=== PATIENT | female | born 1970 | race Two or more races ===

== ENCOUNTER 2023-10-10 14:00 | Outpatient (OUT) | payer SELFPAY | END 2023-10-10 14:01 | disposition home or self-care (01) | LOC: PST 14:01 | PROVIDERS: Visit Provider Surgery | DX: Z01.818 Encounter for other preprocedural examination (principal); Z12.11 Encounter for screening for malignant neoplasm of colon ==

== ENCOUNTER 2023-10-23 06:33 | Day surgery (SDC) | payer BC, SELFPAY ==
--- OUTSIDE RECORDS SUMMARY | 2023-10-23 06:37 | XMS_ITS | CCD ---
Author Organization [facility] Care Team Providers Care Staff Attorney Name Role Phone Jennifer BOWSER, Abril Primary Care Provider CODY SHRESTHA Attending Unavailable ABRIL RODRIGUEZ Referring Unavailable ABRIL RODRIGUEZ Primary Care Unavailable AURELIANO GARVIN Attending Unavailable ABRIL RODRIGUEZ Referring Unavailable ABRIL RODRIGUEZ Primary Care Unavailable Allergies Allergy Classification Reported Allergen(s) Allergy Type Date of Onset Reaction(s) Facility (4 sources) Sulfonamides (Antibiotic); Translations: [SULFA (SULFONAMIDE ANTIBIOTICS)] Propensity to adverse reactions to drug 3 [facility] Medications Current Medications Medication Drug Class(es) Dates Sig (Normalized) Sig (Original) escitalopram 20 mg oral tablet (3 sources) Serotonin Reuptake Inhibitor Start: 07-30-2023 take 1 tablet by mouth in the morning escitalopram (LEXAPRO) 20 mg tablet Indications: Depression, unspecified depression type TAKE 1 TABLET (20 MG TOTAL) BY MOUTH IN THE MORNING 90 tablet 1 07/30/2023 Active loratadine 10 mg oral tablet (3 sources) Start: 02-26-2023 take 1 tablet by mouth in the morning loratadine (CLARITIN) 10 mg tablet Take 1 tablet (10 mg total) by mouth in the morning. 90 tablet 3 02/26/2023 Active meloxicam 7.5 mg oral tablet (4 sources) Nonsteroidal Anti-inflammatory Drug Start: 02-26-2023 End: 09-02-2023 take 1 tablet by mouth in the morning meloxicam (MOBIC) 7.5 mg tablet Indications: Arthritis , Arthralgia, unspecified joint TAKE 1 TABLET (7.5 MG TOTAL) BY MOUTH IN THE MORNING 30 tablet 5 09/02/2023 Active Problems Problem Classification Problem Date Documented Da te Episodic/Chronic Mood disorders (1 source) Depressive disorder; Translations: [Depression, unspecified depression type] 08-29-2023 Chronic Mood disorders (4 sources) Mood disorders; Translations: [Depression, unspecified] Onset: 08-29-2023 01-23-2023 Osteoarthritis (1 source) Arthritis; Translations: [Unspecified osteoarthritis, unspecified site] 09-02-2023 Chronic Other endocrine disorders (1 source) Polycystic ovary syndrome; Translations: [Polycystic ovarian syndrome] 08-29-2023 Chronic Other endocrine disorders (1 source) Polycystic ovarian syndrome; Translations: [Polycystic ovarian syndrome] Onset: 08-29-2023 Chronic Other non-traumatic joint disorders (2 sources) Joint pain; Translations: [Pain in unspecified joint] 08-29-2023 Episodic Other non-traumatic joint disorders (1 source) Pain in unspecified joint; Translations: [Pain in unspecified joint] Onset: 08-29-2023 Episodic Other nutritional; endocrine; and metabolic disorders (1 source) Metabolic syndrome X; Translations: [Metabolic syndrome] 08-29-2023 Chronic Other nutritional; endocrine; and metabolic disorders (1 source) Metabolic syndrome; Translations: [Metabolic syndrome] Onset: 08-29-2023 Chronic Other screening for suspected conditions (not mental disorders or infectious disease) (7 sources) Patient encounter status; Translations: [Encounter for screening for malignant neoplasm of colon] Onset: 03-01-2023 08-29-2023 Episodic Unclassified (1 source) Colon Cancer Screening Onset: 09-24-2023 Results Test Name Value Interpretation Reference Range Facil ity US Venous Reflux/Insuff, David Loweron 02-07-2022 US Venous Reflux/Insuff, David Lower RIGHT LEFT DIAMETER RELUX (msec) DIAMETER REFLUX 1.2 NONE CFV1.86 NONE 1.1 SFV PROX1.6 .78 SFV MID 1.2 .88 SFV DIS .8 .63 SF JUNCTION .68 .89 POP.97 .51 GSV PROX.44 .45 GSV MID.34 .39 GSV DIST.28 .42 GSV KNEE.29 .37 GSV CALF.23 .28 GSV ANKLE.23 .53 SP JUNCTION.35 .41 SSV PROX.42 IMPRESSION: 1. No deep venous thrombosis. 2. No significant venous insufficiency Report reported and signed by Silver Carmona on 02/07/2022 1034 Normal [facility] SCREENING MAMMOGRAM W/DEDRICK, BILATERAL*on 12-15-2021 SCREENING MAMMOGRAM W/DEDRICK, BILATERAL* COMPARISON: Dating back to December 14, 2020 and October 22, 2019 TECHNIQUE: 2D and 3D Tomosynthesis of the right and left breasts was performed. FINDINGS: Breast composition demonstrates almost entirely fat. Stable. No suspicious microcalcifications, asymmetry, architectural distortion or associated features are present. IMPRESSION: BI RADS 1 : NEGATIVE MAMMOGRAM Board Certified Radiologist. Accredited by the ACR and FDA. MAMMOGRAPHY IS VERY IMPORTANT TO YOUR HEALTH. THE CURRENT [employer] GUIDELINES RECOMMENDS ANNUAL MAMMOGRAPHY BEGINNING AT AGE 40. THIS FACILITY USES A REMINDER SYSTEM TO ENSURE ALL PATIENTS RECEIVE REMINDER NOTIFICATIONS AT THE APPROPRIATE TIME BASED ON THE RECOMMENDATIONS OF THIS EXAM. Report reported and signed by Silver Carmona on 12/15/2021 1022 Normal [facility] Comprehensive Metabolic Pane hattie 12-13-2021 Albumin [Mass/Vol] 4.6 g/dL Normal 3.6-5.1 [facility] Comment on above: Performed By: #### T SH reflex FT4, LIPD, CMP #### [facility] [address], [place] [id number] Albumin/Globulin [Mass ratio] 2.3 {ratio} Normal 1.0-2.5 [facility] Comment on above: Performed By: #### T SH reflex FT4, LIPD, CMP #### [facility] [address], [place] [id number] ALP [Catalytic activity/Vol] 65 U/L Normal 35-119 [facility] Comment on above: Performed By: #### T SH reflex FT4, LIPD, CMP #### [facility] [address], [place] [id number] ALT [Catalytic activity/Vol] 13 U/L Normal 6-33 [facility] Comment on above: Result Comment: 07/05 Female reference range changed. Performed By: #### T SH reflex FT4, LIPD, CMP #### [facility] [address], [place] [id number] Anion gap [Moles/Vol] 18 mmol/L Normal 12-20 [facility] Comment on above: Result Comment: Effevgeny ctive 08/10/2019 reference range changed. Performed By: #### T SH reflex FT4, LIPD, CMP #### [facility] [address], [place] [id number] AST [Catalytic activity/Vol] 18 U/L Normal 9-34 [facility] Comment on above: Performed By: #### T SH reflex FT4, LIPD, CMP #### [facility] [address], [place] [id number] Bilirubin [Mass/Vol] 0.44 mg/dL Normal 0.30-1.20 [facility] Comment on above: Performed By: #### T SH reflex FT4, LIPD, CMP #### [facility] [address], [place] [id number] BUN/CREA 14 Ratio Normal 6-22 [facility] Comment on above: Performed By: #### T SH reflex FT4, LIPD, CMP #### [facility] [address], [place] [id number] Calcium [Mass/Vol] 9.9 mg/dL Normal 8.6-10.2 [facility] Comment on above: Performed By: #### T SH reflex FT4, LIPD, CMP #### [facility] [address], [place] [id number] Chloride [Moles/Vol] 102 mmol/L Normal 98-107 [facility] Comment on above: Performed By: #### T SH reflex FT4, LIPD, CMP #### [facility] [address], [place] [id number] CO2 [Moles/Vol] 26 mmol/L Normal 20-31 [facility] Comment on above: Performed By: #### T SH reflex FT4, LIPD, CMP #### [facility] [address], [place] [id number] Creatinine [Mass/Vol] 0.9 mg/dL Normal 0.6-1.4 [facility] Comment on above: Performed By: #### T SH reflex FT4, LIPD, CMP #### [facility] [address], [place] [id number] eGFRAA 83 mL/min/1.73m2 Normal >60 [facility] Specialist Comment on above: Performed By: #### T SH reflex FT4, LIPD, CMP #### [facility] [address], [place] [id number] eGFRNAA 69 mL/min/1.73m2 Normal >60 [facility] Specialist Comment on above: Performed By: #### T SH reflex FT4, LIPD, CMP #### [facility] [address], [place] [id number] Globulin (S) [Mass/Vol] 2.0 g/dL Normal 1.9-3.7 [facility] Specialist Comment on above: Performed By: #### T SH reflex FT4, LIPD, CMP #### [facility] [address], [place] [id number] Glucose [Mass/Vol] 117 mg/dL High 65-99 [facility] Specialist Comment on above: Result Comment: For FASTING Glucose --- ADA reference ranges: Normal 65-99 mg/dl Prediabetes 100-125 Diabetes >/= 126 Performed By: #### T SH reflex FT4, LIPD, CMP #### [facility] [address], [place] [id number] Potassium [Moles/Vol] 4.6 mmol/L Normal 3.5-5.5 [facility] Secretary Comment on above: Result Comment: Spec imen is hemolyzed. Results may be affected. Performed By: #### T SH reflex FT4, LIPD, CMP #### [facility] [address], [place] [id number] Protein [Mass/Vol] 6.6 g/dL Normal 6.1-8.1 [facility] Hospital Secretary Comment on above: Performed By: #### T SH reflex FT4, LIPD, CMP #### [facility] [address], [place] [id number] Sodium [Moles/Vol] 142 mmol/L Normal 135-146 [facility] Hospital Secretary Comment on above: Performed By: #### T SH reflex FT4, LIPD, CMP #### [facility] [address], [place] [id number] Urea nitrogen [Mass/Vol] 13 mg/dL Normal 7-25 [facility] Secretary Comment on above: Performed By: #### T SH reflex FT4, LIPD, CMP #### [facility] [address], [place] [id number] Lipid Panelon 12-13-2021 Cholesterol [Mass/Vol] 188 mg/dL Normal 125-200 [facility] Specialist Comment on above: Result Comment: Low risk < 200mg/dL Borderline risk 201-239 mg/dl High risk > or equal to 240 Performed By: #### T SH reflex FT4, LIPD, CMP #### [facility] [address], [place] [id number] Cholesterol in HDL [Mass/Vol] 68 mg/dL Normal >40 [facility] Secretary Comment on above: Result Comment: High Cardiovascular Risk HDL <40 mg/dL Low Cardiovascular Risk HDL > or equal to 60 mg/dl Performed By: #### T SH reflex FT4, LIPD, CMP #### [facility] [address], [place] [id number] Cholesterol in LDL [Mass/Vol] 103 mg/dL Normal [facility] Specialist Comment on above: Result Comment: LDL ATP III CLASSIFICATION LDL less than 100 mg/dl Optimal LDL 100-129 mg/dl Near or above optimal LDL 130-159 Borderline high LDL 160-189 High LDL greater than 189 mg/dl Very High Performed By: #### T SH reflex FT4, LIPD, CMP #### [facility] [address], [place] [id number] Cholesterol in VLDL [Mass/Vol] 17 mg/dL Normal [facility] Specialist Comment on above: Performed By: #### T SH reflex FT4, LIPD, CMP #### [facility] [address], [place] [id number] Cholesterol.total/C holesterol in HDL [Mass ratio] 3 {ratio} Normal [facility] Specialist Comment on above: Performed By: #### T SH reflex FT4, LIPD, CMP #### [facility] [address], [place] [id number] Triglyceride [Mass/Vol] 83 mg/dL Normal 30-150 [facility] Secretary Comment on above: Result Comment: TRIG ATPIII CLASSIFICATIONS TRIG less than 150 mg/dl Normal TRIG 150-199 mg/dl Borderline High TRIG 200-500 mg/dl High TRIG greather than 500 mg/dl Very High Performed By: #### T SH reflex FT4, LIPD, CMP #### [facility] [address], [place] [id number] TSH w/ Reflex to Free T4on 0 12-13-2021 TSH 3.260 uIU/mL Normal 0.400-4.500 [facility] Secretary Comment on above: Performed By: #### T SH reflex FT4, LIPD, CMP #### [facility] [address], [place] [id number] XR Spine Cervical Complete*o n 12-13-2021 XR Spine Cervical Complete* FINDINGS: Cervical vertebral bodies are preserved in height and are relatively normally aligned. Mild disc space loss with mild anterior and posterior osteophyte formation involving C5/6. Mild mid and distal cervical facet arthropathy, mild to moderate bilateral C5/6 and C6/7 neural foraminal stenosis. No fracture or focal soft tissue swelling is seen. Prevertebral soft tissues are normal. IMPRESSION: Lower cervical arthritis, mild to moderate C5/6 and C6/7 neural foraminal stenosis. Report reported and signed by Silver Carmona on 12/13/2021 1031 Normal [facility] Secretary Vital Signs Date Time Vital Sign Value Performing Clinician Trinity stanley 09-24-2023 15:43-0500 Body height 170.2 cm Aureliano SHARP Work Phone: [facility] 09-24-2023 15:43-0500 Body mass index (BMI) [Ratio] 54.88 kg/m2 Aureliano SHARP Work Phone: [facility] 09-24-2023 15:43-0500 Body weight 158.94 kg Aureliano SHARP Work Phone: [facility] 09-24-2023 15:43-0500 Diastolic blood pressure 84 mm[Hg] Aureliano SHARP Work Phone: [facility] 09-24-2023 15:43-0500 Systolic blood pressure 163 mm[Hg] Aureliano Garvin [employer]ACEE[employer]RASIVE W[employer] J[employer] CUTTER OPERATOR Work Phone: [facility] 08-29-2023 15:45-0500 Body height 170.2 cm Cody Shrestha PA-C Work Phone: [facility] 08-29-2023 15:45-0500 Body mass index (BMI) [Ratio] 57.17 kg/m2 Cody Shrestha PA-C Work Phone: [facility] 08-29-2023 15:45-0500 Body temperature 97.7 [degF] Cody Shrestha PA-C Work Phone: [facility] 08-29-2023 15:45-0500 Body weight 165.56 kg Cody Shrestha PA-C Work Phone: [facility] 08-29-2023 15:45-0500 Diastolic blood pressure 86 mm[Hg] Cody Shrestha PA-C Work Phone: [facility] 08-29-2023 15:45-0500 Heart rate 62 /min Cody Shrestha PA-C Work Phone: [facility] 08-29-2023 15:45-0500 SaO2% (BldA) [Mass fraction] 97 % Cody Shrestha PA-C Work Phone: [facility] 08-29-2023 15:45-0500 Systolic blood pressure 124 mm[Hg] Cody Shrestha PA-C Work Phone: [facility] Encounters Encounter Date Encounter Type Care Provider Facility Start: 09-24-2023 End: 09-24-2023 ambulatory AURELIANO Mesha VIRGIE [facility] Start: 09-24-2023 End: 09-24-2023 Patient encounter procedure Aureliano Mesha Virgie CASTILLON[employer]RAS[employer] CUTTER OPERATOR Work Phone: [facility] Comment on above: Encounter for screen ing colonoscopy (Primary Dx); Special screening for malignant neoplasm of colon Start: 09-02-2023 Refill Cody Shrestha PA-C Work Phone: [facility]/Abril Rodriguez MD Comment on above: Arthritis; Arthralgia, unspecified joint Start: 08-29-2023 End: 08-29-2023 ambulatory [facility] Nima SHRESTHA [facility] Start: 08-29-2023 Encounter for genera l adult medical examination without abnormal findings CODY Herring SHRESTHA [facility] Start: 08-29-2023 End: 08-29-2023 Office outpatient visit 25 minutes Cody Shrestha PA-C Work Phone: [facility]/Abril Rodriguez MD Comment on above: Metabolic syndrome ( Primary Dx); Depression, unspecified depression type; PCOS (polycystic ovarian syndrome); Arthralgia, unspecified joint; Annual physical exam; Special screening for malignant neoplasm of colon Start: 08-29-2023 End: 08-29-2023 Patient encounter procedure Cody Shrestha PA-C Work Phone: [facility] Procedures Date Procedure Procedure Detail Performing Clinician Start: 08-29-2023 Follow-up visit Follow-up CODY SHRESTHA Start: 01-23-2023 Adult depression screening assessment Cody Shrestha PA-C Work Phone: Plan of Treatment Date Care Activity Detail Author Start: 09-24-2024 Adult BMI Screening Adult BMI Screen ing [facility] Start: 09-24-2024 Tobacco Screening Tobacco Screening [facility] Start: 08-29-2024 Adult BMI Screening Adult BMI Screen ing [facility] Start: 08-29-2024 Tobacco Screening Tobacco Screening [facility] Start: 01-24-2024 Depression Screening Depression Scre ening [facility] Start: 11-14-2023 End: 11-14-2023 Patient encounter procedure 11/14/2023 3:00 PM EDT Office Visit [facility]/Abril Rodriguez MD [address] [place] [id number] Cody Shrestha, PAMansoorC [address] [place] [address] [facility]/Abril Rodriguez MD Start: 09-24-2023 End: 09-24-2023 Patient encounter procedure 09/24/2023 3:30 PM EST Office Visit [facility] [address] [place] [address] Aureliano Garvin, BASE BRANDER-ABRASIVE W[employer] JET CUTTER OPERATOR [address] [place] [address] [facility] Start: 04-05-2023 COVID-19 Vaccine ( season) COVID-19 Vaccine ( season) [facility] Start: 04-05-2023 Influenza vaccination Influenza Vacc ine [facility] Start: 2020 Administration of varicella zoster vaccine Zoster (Shingles) Vaccine (1 of 2) [facility] Start: 1991 Screening for malign ant neoplasm of cervix Pap Smear [facility] Start: 1989 DTaP,Tdap and Td Vaccines (1 - Tdap) DTaP,Tdap and Td Vaccines (1 - Tdap) [facility] Start: 1988 Adult BMI Follow Up Plan Adult BMI Follow Up Plan [facility] End: 08-29-2024 CBC W Auto Differential panel - Blood CBC auto differential Lab Routine Metabolic syndrome Annual physical exam 1 Occurrences starting 08/29/2023 until 08/29/2024 [facility] Work Phone: Comment on above: 1 Occurrences starti ng 08/29/2023 until 08/29/2024 End: 09-24-2024 Colonoscopy Colonoscopy GI Routine Encounter for screening colonoscopy 1 Occurrences starting 09/24/2023 until 09/24/2024 [facility] Work Phone: Comment on above: 1 Occurrences starti ng 09/24/2023 until 09/24/2024 End: 08-29-2024 Comprehensive metabolic 2000 panel - Serum or Plasma Comprehensive metabolic panel Lab Routine Metabolic syndrome Depression, unspecified depression type Annual physical exam 1 Occurrences starting 08/29/2023 until 08/29/[address] [facility] Comment on above: 1 Occurrences starti ng 08/29/2023 until 08/29/2024 End: 08-29-2024 Hemoglobin A1c/Hemoglobin.total in Blood Hemoglobin A1c Lab Routine Metabolic syndrome Annual physical exam 1 Occurrences starting 08/29/2023 until 08/29/2024 [facility] Comment on above: 1 Occurrences starti ng 08/29/2023 until 08/29/2024 End: 08-29-2024 Lipid 1996 panel - Serum or Plasma Lipid profile Lab Routine Metabolic syndrome Annual physical exam 1 Occurrences starting 08/29/2023 until 08/29/2024 [facility] Comment on above: 1 Occurrences starti ng 08/29/2023 until 08/29/2024 End: 08-29-2024 Thyrotropin [Units/volume] in Serum or Plasma TSH Lab Routine Metabolic syndrome Annual physical exam 1 Occurrences starting 08/29/2023 until 08/29/[address] [facility] Comment on above: 1 Occurrences starti ng 08/29/2023 until 08/29/2024 End: 08-29-2024 Thyroxine (T4) free [Mass/volume] in Serum or Plasma T4, free Lab Routine Metabolic syndrome Annual physical exam 1 Occurrences starting 08/29/2023 until 08/29/[address] [facility] Comment on above: 1 Occurrences starti ng 08/29/2023 until 08/29/2024 Immunizations Immunization Date Immunization Notes Care Provider Fa camille 05-23-2022 influenza virus vaccine, unspecified formulation Cody Shrestha PA-C Work Phone: [facility] Payers Date Payer Category Payer Unknown CAR DIAS (PPO) [id number] 2023-Present [phone] [address] [place] [address] [id number] 2023 Unknown [id number] 1970 Unknown [id number] 1970 Unknown [id number] Social History Date Type Detail Facility Start: 01-23-2023 Tobacco smoking stat [facility] Never smoked tobacco [facility] Start: 01-23-2023 Tobacco use and exposure Smokeless tobacco non-user [facility] Start: 08-29-2023 End: 09-24-2023 Alcohol intake Current drinker of alcohol (finding) [facility] Start: 01-23-2023 End: 08-29-2023 History of Social function [facility] Start: 01-23-2023 End: 08-29-2023 Tobacco use panel [facility] How hard is it for y ou to pay for the very basics like food, housing, medical care, and heating Not very hard [facility] Adolescent depressio n screening assessment [address] [facility] Start: 01-23-2023 Alcohol Comment social [facility] Start: 1970 Sex Assigned At Not on file P [facility] History of Present illness Narrative 09-24-2023 Aureliano Garvin, TRACEE[employer]RASIVE W[employer] J[employer] CUTTER OPERATOR - 09/24/2023 3:30 PM EST Note Date & Type Note Facility 09-24-2023 History of Present illness Narrative Images from the original note were not included. Chief Complaint: Colon cancer screening History of Present Illness Brown Aguilar is a 53 y.o. female who presents to the office for colon cancer screening. This is her first colonoscopy. She denies any changes in her bowels including diarrhea, constipation, abdominal pain, melena, hematochezia, unexplained weight loss. There is no family history of colon cancer. Review of Systems Constitutional: Negative for fever and unexpected weight change. HENT: Negative for trouble swallowing. Respiratory: Negative for shortness of breath. Cardiovascular: Negative for chest pain. Gastrointestinal: Negative for nausea, vomiting, abdominal pain, diarrhea, constipation and blood in stool. Genitourinary: Negative for dysuria and difficulty urinating. Musculoskeletal: Negative for gait problem. Skin: Negative for rash and wound. Neurological: Negative for dizziness, weakness and light-headedness. Hematological: Does not bruise/bleed easily. Psychiatric/Behavioral: Negative for confusion. Past Medical History: Diagnosis Date Allergic rhinitis Arthritis Depression GERD (gastroesophageal reflux disease) Obesity PCOS (polycystic ovarian syndrome) Varicella Visual impairment Past Surgical History: Procedure Laterality Date APPENDECTOMY 1993 BREAST BIOPSY 2004 Benign BREAST LUMPECTOMY Right 2004 Benign, Dr. Smith CHOLECYSTECTOMY 1995 COLONOSCOPY EGD [address] Hue Cox. Right ovary remains TOTAL HIP ARTHROPLASTY Right 2017 TUBAL LIGATION 1996 Allergies Allergen Reactions Sulfa (Sulfonamide Antibiotics) Hives HIVES, no ROSEY Current Outpatient Medications: escitalopram (LEXAPRO) 20 mg tablet, TAKE 1 TABLET (20 MG TOTAL) BY MOUTH IN THE MORNING, Disp: 90 tablet, Rfl: 1 loratadine (CLARITIN) 10 mg tablet, Take 1 tablet (10 mg total) by mouth in the morning., Disp: 90 tablet, Rfl: 3 meloxicam (MOBIC) 7.5 mg tablet, TAKE 1 TABLET (7.5 MG TOTAL) BY MOUTH IN THE MORNING, Disp: 30 tablet, Rfl: 5 Social History Socioeconomic History Marital status: Spouse name: Not on file Number of children: Not on file Years of education: Not on file Highest education level: Not on file Occupational History Not on file Tobacco Use Smoking status: Never Smokeless tobacco: Never Vaping Use Vaping Use: Never used Substance and Sexual Activity Alcohol use: Yes Comment: social Drug use: Never Sexual activity: Defer Other Topics Concern Not on file Social History Narrative Not on file Social Determinants of Health Financial Resource Strain: Low Risk (01/20/2023) Overall Financial Resource Strain (CARDIA) Difficulty of Paying Living Expenses: Not very hard Food Insecurity: No Food Insecurity (01/23/2023) Hunger Screening Food Insecurity - Worry: Never True Food Insecurity - Inability: Never True Transportation Needs: No Transportation Needs (01/20/2023) PRAPARE - Transportation Lack of Transportation (Medical): No Lack of Transportation (Non-Medical): No Physical Activity: Not on file Stress: Not on file Social Connections: Not on file Interpersonal Safety: Not on file Housing Instability: Low Risk (01/20/2023) Housing Instability Housing Instability: No Family History Problem Relation Age of Onset Diabetes Mother Hypertension Mother Arthritis Mother Hyperlipidemia Mother Dementia Father Diabetes Father Hyperlipidemia Father Hypertension Father Hypertension Son Learning disabilities Son Mental illness Son Learning disabilities Son Learning disabilities Son Objective Physical Exam Constitutional: General: She is not in acute distress. Appearance: Normal appearance. She is obese. She is not ill-appearing. HENT: Head: Normocephalic and atraumatic. Mouth/Throat: Mouth: Mucous membranes are moist. Eyes: Pupils: Pupils are equal, round, and reactive to light. Cardiovascular: Rate and Rhythm: Normal rate. Pulmonary: Effort: Pulmonary effort is normal. No respiratory distress. Abdominal: General: There is no distension. Palpations: Abdomen is soft. Musculoskeletal: General: Normal range of motion. Skin: General: Skin is warm and dry. Neurological: Mental Status: She is alert and oriented to person, place, and time. Mental status is at baseline. Vital Signs: Blood pressure 163/84, height 170.2 cm (5' 7 ), weight (!) 158.9 kg (350 lb 6.4 oz). Respiratory Source: No data recorded Admission Weight: Weight: (!) 158.9 kg (350 lb 6.4 oz) Labs Lab Results Component Value Date WBC 5.3 01/29/2023 HGB 13.0 01/29/2023 HCT 39.2 01/29/2023 MCV 87 01/29/2023 PLT 210 01/29/2023 Lab Results Component Value Date GLU 127 (H) 01/29/2023 CALCIUM 8.9 01/29/2023 K 3.9 01/29/2023 CO2 28 01/29/2023 CL 107 01/29/2023 BUN 15 01/29/2023 CREATININE 0.86 01/29/2023 No results found for: AMYLASE No results found for: LIPASE Lab Results Component Value Date ALT 13 01/29/2023 AST 14 01/29/2023 ALKPHOS 48 01/29/2023 No results found for: INR , PROTIME Assessment Brown Aguilar is a 53 y.o.female who presents to the office for screening colonoscopy. Plan Colonoscopy with possible biopsy and/or polypectomy. Risks, benefits, and alternatives discussed with patient. Educated on bowel evacuation preparation. Patient verbalizes understanding and wishes to proceed. She already has sutab at home. Evaluation included: Preparing to see the patient (e.g., review of tests) Obtaining and/or reviewing separately obtained history Performing a medically appropriate examination and/or evaluation Counseling and educating the patient/family/caregiver Referring and communicating with other health respiratory care instructor Encounter for screening colonoscopy [Z12.11] ARON MEZA [facility] General Surgery [place] This note was created with the assistance of a speech recognition program. While intending to generate a timely document that accurately reflects the content of the visit, no guarantee can be provided that every grammatical or spelling mistake has been or will be identified or corrected. Thank you for your understanding. ARON Meza 09/24/23 1555 documented in this encounter [facility] History of Present illness Narrative 08-29-2023 Cody Shrestha PA-C - 08/29/2023 3:30 PM EST Note Date & Type Note Facility 08-29-2023 History of Present illness Narrative Subjective Patient ID: Brown Aguilar is a 53 y.o. female. Chief Complaint Chief Complaint Patient presents with Follow-up 6 month f/u, med check HPI HPI 3rd visit with Brown, 6 month recheck to metabolic syndrome, arthritis, mild depression. 01/29/23 A1C elevated at 6.0. Wt down 10 lbs from January. But of recent down 20 lbs overall. Feels good, motivated. Exercise bike 20 minutes/day. Mobic 7.5mg qd. 20x better within 3-4 days. I can move, I can walk, doing ellicpitcal. Takes 1 per day. Occ with cold/rain would like to take 2/day. Instead of cologuard requested a c-scope. Mammogram completed 03/21/2023. Doing well on lexapro 20mg qd. Past Medical History Past Medical History: Diagnosis Date Depression PCOS (polycystic ovarian syndrome) Past Surgical History Past Surgical History: Procedure Laterality Date APPENDECTOMY 1993 BREAST LUMPECTOMY Right 2003 Benign, Dr. Smith COLONOSCOPY GALLBLADDER SURGERY [address] Hue Cox. Right ovary remains TOTAL HIP ARTHROPLASTY Right 2016 TUBAL LIGATION 1996 Family History Family History Problem Relation Age of Onset Diabetes Mother Hypertension Mother Dementia Father Diabetes Father Social History Social History Socioeconomic History Marital status: Spouse name: Not on file Number of children: Not on file Years of education: Not on file Highest education level: Not on file Occupational History Not on file Tobacco Use Smoking status: Never Smokeless tobacco: Never Vaping Use Vaping Use: Never used Substance and Sexual Activity Alcohol use: Yes Comment: social Drug use: Never Sexual activity: Yes Partners: Male Other Topics Concern Not on file Social History Narrative Not on file Social Determinants of Health Financial Resource Strain: Low Risk (01/20/2023) Overall Financial Resource Strain (CARDIA) Difficulty of Paying Living Expenses: Not very hard Food Insecurity: No Food Insecurity (01/23/2023) Hunger Screening Food Insecurity - Worry: Never True Food Insecurity - Inability: Never True Transportation Needs: No Transportation Needs (01/20/2023) PRAPARE - Transportation Lack of Transportation (Medical): No Lack of Transportation (Non-Medical): No Physical Activity: Not on file Stress: Not on file Social Connections: Not on file Interpersonal Safety: Not on file Housing Instability: Low Risk (01/20/2023) Housing Instability Housing Instability: No Allergies Allergies Allergen Reactions Sulfa (Sulfonamide Antibiotics) Hives HIVES, no ROSEY Current Medications Current Outpatient Medications Medication Sig Dispense Refill escitalopram (LEXAPRO) 20 mg tablet TAKE 1 TABLET (20 MG TOTAL) BY MOUTH IN THE MORNING 90 tablet 1 loratadine (CLARITIN) 10 mg tablet Take 1 tablet (10 mg total) by mouth in the morning. 90 tablet 3 meloxicam (MOBIC) 7.5 mg tablet Take 1 tablet (7.5 mg total) by mouth in the morning. 30 tablet 5 No current facility-administered medications for this visit. Review of Systems Review of Systems Constitutional: Negative for appetite change, fatigue and fever. HENT: Negative for ear pain and sore throat. Respiratory: Negative for cough and shortness of breath. Cardiovascular: Negative for chest pain and leg swelling. Gastrointestinal: Negative for abdominal pain, diarrhea, nausea and vomiting. Genitourinary: Negative for dysuria and flank pain. Musculoskeletal: Positive for arthralgias. Negative for back pain, gait problem, myalgias and neck pain. Skin: Negative for rash and wound. Neurological: Negative for dizziness, weakness, numbness and headaches. Psychiatric/Behavioral: Negative for confusion and sleep disturbance. The patient is not nervous/anxious. Objective Vitals BP 124/86 Pulse 62 Temp 36.5 C (97.7 F) Ht 170.2 cm (5' 7 ) Wt (!) 165.6 kg (365 lb) SpO2 97% BMI 57.17 kg/m Physical Exam Physical Exam Constitutional: General: She is not in acute distress. Appearance: She is well-developed. She is obese. She is not ill-appearing. HENT: Head: Normocephalic and atraumatic. Right Ear: Tympanic membrane and ear canal normal. Left Ear: Tympanic membrane and ear canal normal. Nose: Nose normal. Right Sinus: No maxillary sinus tenderness or frontal sinus tenderness. Left Sinus: No maxillary sinus tenderness or frontal sinus tenderness. Mouth/Throat: Mouth: Mucous membranes are moist. Pharynx: Uvula midline. Eyes: Conjunctiva/sclera: Conjunctivae normal. Pupils: Pupils are equal, round, and reactive to light. Neck: Thyroid: No thyroid mass or thyromegaly. Vascular: No carotid bruit or JVD. Trachea: Trachea normal. Meningeal: Kernig's sign absent. Cardiovascular: Rate and Rhythm: Normal rate and regular rhythm. Pulses: Normal pulses. Radial pulses are 2+ on the right side and 2+ on the left side. Heart sounds: Normal heart sounds, S1 normal and S2 normal. No murmur heard. Pulmonary: Effort: Pulmonary effort is normal. No respiratory distress. Breath sounds: Normal breath sounds. No decreased breath sounds, wheezing, rhonchi or rales. Abdominal: General: Bowel sounds are normal. Palpations: Abdomen is soft. There is no mass. Tenderness: There is no abdominal tenderness. Negative signs include Garcia's sign and McBurney's sign. Hernia: No hernia is present. Musculoskeletal: General: Normal range of motion. Cervical back: Full passive range of motion without pain and normal range of motion. No rigidity or tenderness. Thoracic back: Normal. No tenderness. Lumbar back: Normal. No tenderness. Right lower leg: No edema. Left lower leg: No edema. Right ankle: No swelling. Left ankle: No swelling. Lymphadenopathy: Cervical: Right cervical: No superficial cervical adenopathy. Left cervical: No superficial cervical adenopathy. Upper Body: Right upper body: No supraclavicular adenopathy. Left upper body: No supraclavicular adenopathy. Skin: General: Skin is warm and dry. Capillary Refill: Capillary refill takes less than 2 seconds. Findings: No ecchymosis or rash. Nails: There is no clubbing. Neurological: General: No focal deficit present. Mental Status: She is alert and oriented to person, place, and time. Cranial Nerves: No cranial nerve deficit. Sensory: No sensory deficit. Motor: No tremor. Coordination: Coordination normal. Gait: Gait normal. Psychiatric: Mood and Affect: Mood normal. Speech: Speech normal. Behavior: Behavior normal. Behavior is cooperative. Judgment: Judgment normal. Wt Readings from Last 3 Encounters: 08/29/23 (!) 165.6 kg (365 lb) 02/26/23 (!) 170.1 kg (375 lb) 01/23/23 (!) 172.8 kg (381 lb) Recent Pertinent Labs and Radiology Assessment/Plan 1. Metabolic syndrome - POCT Hemoglobin A1c - CBC auto differential; Future - Comprehensive metabolic panel; Future - Lipid profile; Future - Hemoglobin A1c; Future - TSH; Future - T4, free; Future 2. Depression, unspecified depression type - Comprehensive metabolic panel; Future 3. PCOS (polycystic ovarian syndrome) 4. Arthralgia, unspecified joint 5. Annual physical exam - CBC auto differential; Future - Comprehensive metabolic panel; Future - Lipid profile; Future - Hemoglobin A1c; Future - TSH; Future - T4, free; Future 6. Special screening for malignant neoplasm of colon - Ambulatory referral to General Surgery; Future There are no discontinued medications. Patient Instructions Chronic conditions well controlled Great job on weight loss Fasting labs Referral to Dr. Clemente, general surgeon for screening c-scope Recheck in 3 months Cody Shrestha PA-C 08/29/23 1626 documented in this encounter [facility] [employer] [facility] Instructions 08-29-2023 Patient Instructions Note Date & Type Note Facility 08-29-2023 Instructions Cody Shrestha PA-C - 08/29/2023 3:30 PM EST Chronic conditions well controlled Great job on weight loss Fasting labs Referral to Dr. Clemente, general surgeon for screening c-scope Recheck in 3 months documented in this encounter [facility] Evaluation note Note Date & Type Note Facility Evaluation note Diagnosis Metabolic syndrome- Primary Dysmetabolic Syndrome X Depression, unspecified depression type PCOS (polycystic ovarian syndrome) Polycystic ovaries Arthralgia, unspecified joint Annual physical exam Routine general medical examination at a health care facility Special screening for malignant neoplasm of colon Special screening for malignant neoplasms, colon documented in this encounter [facility] Evaluation note Note Date & Type Note Facility Evaluation note Diagnosis Arthritis Unspecified arthropathy, site unspecified Arthralgia, unspecified joint documented in this encounter [facility] Evaluation note Note Date & Type Note Facility Evaluation note Diagnosis Encounter for screening colonoscopy- Primary Special screening for malignant neoplasm of colon Special screening for malignant neoplasms, colon documented in this encounter [facility] Instructions Note Date & Type Note Facility Instructions Not on filedocumented in this en counter [facility] Instructions Note Date & Type Note Facility Instructions Not on filedocumented in this en counter [facility] Reason for referral (narrative) Consultation (Routine) - Pending Review Note Date & Type Note Facility Reason for referral (narrati ve) Specialty Diagnoses / Procedures Referred By Lakeisha t Referred To Contact General Surgery Diagnoses Special screening for malignant neoplasm of colon Cody Shrestha PA-C [address] [place] [address] Og Clemente MD [address] [place] [address] Referral ID Status Reason Start Date Expiration Date Visits Requested Visits Authorized [id number] Pending Review Specialty Services Required 08/29/2023 08/28/2024 1 1 [facility] Summary Purpose Family History No Family History Records FoundNo Family History Records Found Advance Directives No Advanced Directives Records FoundNo Advanced Directives Records Found Additional Source Comments INFORMATION SOURCE (unrecogn ized section and content) DATE CREATED AUTHOR 02/07/2022 [facility] dical Specialist DATE CREATED AUTHOR AUTHOR'S ORGANIZ ATION 10/02/2023 [facility] Reason for Visit (unrecogniz ed section and content) Reason Comments Follow-up 6 month f/u, med ronaldo ck Reason Comments Med Refill Reason Comments Colon Cancer Screening First colon Specialty Diagnoses / Procedures Referred By Lakeisha del castillo Referred To Contact General Surgery Diagnoses Special screening for malignant neoplasm of colon Cody Shrestha PA-C [address] [place] [id number] Og Smith DO [address] [place] [address] Referral ID Status Reason Start Date Expiration Date V isits Requested Visits Authorized [id number] Closed Specialty Services Required 08/29/2023 08/28/2024 1 1 Care Teams (unrecognized sec tion and content) Staff Attorney Relationship Specialty Start Date End Date Abril Rodriguez MD [address] [address] PCP - General Internal Medicine 01/23/23 Staff Attorney Relationship Specialty Start Date End Date Abril Rodriguez MD [address] [address] PCP - General Internal Medicine 01/23/23 Staff Attorney Relationship Specialty Start Date End Date Abril Rodriguez MD [address] [address] PCP - General Internal Medicine 01/23/23 FOR RECORDS PERTAINING TO PATIENTS WHO ARE OR HAVE BEEN ENROLLED IN A CHEMICAL DEPENDENCY/SUBSTANCEABUSE PROGRAM, SOME INFORMATION MAY BE OMITTED. This clinical summary was aggregated from multiple sources. Caution should be exercised in using it in the provision of clinical care. This summary normalizes information from multiple sources, and as a consequence, information in this document may materially change the coding, format and clinical context of patient data. In addition, data may be omitted in some cases. CLINICAL DECISIONS SHOULD BE BASED ON THE PRIMARY CLINICAL RECORDS. [employer] provides no warranty or guarantee of the accuracy or completeness of information in this document.
[2023-10-23 06:54] VITALS: BP 169/86; PULSE 90; RESP 18; TEMP 35.5; O2SAT 96; BMI 53.5
[2023-10-23] MEDS: LACTATED RINGER'S SOLUTION 1,000 ML 50 ML IV (07:05)
--- NOTE | 2023-10-23 07:45 | PM.GSPRC ---
Date of procedure: 10/23/23 Indications for Procedure: screening for cancer Pre-op diagnosis: screening for cancer Post-op diagnosis: other (colon polyp ?2 rectum 5-7 mm each) Procedure: colonoscopy with hot snare polyps rectum ?2 Minimal diverticulosis sigmoid colon Findings: rectal polyps; diverticulosis minimal sigmoid colon Anesthesia: MAC Surgeon: Og Smith Procedure Summary: PROCEDURE: The patient was taken to the Endoscopy Suite, placed in the left lateral recumbent position, given IV sedation as above. A rectal digital exam was performed. The sphincter tone was found to be normal. No rectal masses were appreciated. The Olympus video colonoscope was advanced under direct visualization to the rectum, sigmoid colon, descending colon, transverse colon and ascending colon to the ileocecal valve. The underside of the valve was seen.appendiceal lumen was visualized. The scope was slowly withdrawn with air being desufflated as it was withdrawn. No gross tumors seen. She had minimal diverticulosis about two of them in the sigmoid colon found. In the rectum two small polyps were encountered and snared with hot snare and retrieved. Scope was retroflexed on itself. The patient tolerated the procedure well and went to the Recovery Area in satisfactory condition. I recommend the patient use a bulk laxative on a regular basis and follow up as needed.she should follow high-fiber diet. She is encouraged to lose weight. I would recommend follow-up in five years if polyps are tubular adenomas. Estimated blood loss (mL): 0 Specimens: rectal polyps Complications: No Condition: stable Disposition: PACU
[2023-10-23 07:47] VITALS: BP 145/85; PULSE 65; RESP 18; TEMP 36.6; O2SAT 94
[2023-10-23 08:02] VITALS: BP 123/78; PULSE 63; RESP 18; O2SAT 99
[2023-10-23 08:16] VITALS: BP 132/72; PULSE 70; RESP 16
== END 2023-10-23 08:17 | disposition home or self-care (01) ==
PROVIDERS: Visit Provider Surgery
PROC: (CPT 812; principal; 2023-10-23 07:30)
DX: Z12.11 Encounter for screening for malignant neoplasm of colon (principal); K57.30 Diverticulosis of large intestine without perforation or abscess without bleeding; D3A.026 Benign carcinoid tumor of the rectum; M19.90 Unspecified osteoarthritis, unspecified site; F32.A Depression, unspecified; K21.9 Gastro-esophageal reflux disease without esophagitis; E28.2 Polycystic ovarian syndrome; D64.9 Anemia, unspecified; Z90.49 Acquired absence of other specified parts of digestive tract; Z90.710 Acquired absence of both cervix and uterus; Z96.641 Presence of right artificial hip joint; Z98.51 Tubal ligation status; Z68.43 Body mass index [BMI] 50.0-59.9, adult; E66.01 Morbid (severe) obesity due to excess calories
CPT/HCPCS: 45385; 88305; 88341; 88342; 99999; J2704

== ENCOUNTER 2023-11-05 11:56 | Outpatient (OUT) | payer BC, SELFPAY ==
--- OUTSIDE RECORDS SUMMARY | 2023-11-05 12:19 | XMS_ITS | CCD ---
Author Organization [facility] Care Team Providers Care Director Engineering Name Role Phone Jennifer BOWSER, Abril Primary Care Provider CODY SHRESTHA Attending Unavailable ABRIL RODRIGUEZ Referring Unavailable ABRIL RODRIGUEZ Primary Care Unavailable AURELIANO GARVIN Attending Unavailable ABRIL RODRIGUEZ Referring Unavailable ABRIL RODRIGUEZ Primary Care Unavailable Allergies Allergy Classification Reported Allergen(s) Allergy Type Date of Onset Reaction(s) Facility (9 sources) Sulfonamides (Antibiotic); Translations: [SULFA (SULFONAMIDE ANTIBIOTICS)] Propensity to adverse reactions to drug 3 [facility] Medications Current Medications Medication Drug Class(es) Dates Sig (Normalized) Sig (Original) escitalopram 20 mg oral tablet (8 sources) Serotonin Reuptake Inhibitor Start: 07-30-2023 take 1 tablet by mouth in the morning escitalopram (LEXAPRO) 20 mg tablet Indications: Depression, unspecified depression type TAKE 1 TABLET (20 MG TOTAL) BY MOUTH IN THE MORNING 90 tablet 1 07/30/2023 Active loratadine 10 mg oral tablet (8 sources) Start: 02-26-2023 take 1 tablet by mouth in the morning loratadine (CLARITIN) 10 mg tablet Take 1 tablet (10 mg total) by mouth in the morning. 90 tablet 3 02/26/2023 Active meloxicam 7.5 mg oral tablet (9 sources) Nonsteroidal Anti-inflammatory Drug Start: 02-26-2023 End: 09-02-2023 take 1 tablet by mouth in the morning meloxicam (MOBIC) 7.5 mg tablet Indications: Arthritis , Arthralgia, unspecified joint TAKE 1 TABLET (7.5 MG TOTAL) BY MOUTH IN THE MORNING 30 tablet 5 09/02/2023 Active Problems Active Problems Problem Classification Problem Date Documented Da te Episodic/Chronic Mood disorders (1 source) Depressive disorder; Translations: [Depression, unspecified depression type] 08-29-2023 Chronic Osteoarthritis (1 source) Arthritis; Translations: [Unspecified osteoarthritis, unspecified site] 09-02-2023 Chronic Other and unspecified benign neoplasm (1 source) Carcinoid tumor of rectum; 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] 11-04-2023 Episodic Other endocrine disorders (1 source) Polycystic ovary [...] syndrome; Translations: [Metabolic syndrome] Onset: 08-29-2023 Chronic Unclassified (1 source) Colon Cancer Screening Onset: 09-24-2023 Past or Other Problems Problem Classification Problem Date Documented Da te Episodic/Chronic Mood disorders (9 sources) Mood disorders; Translations: [Depression, unspecified] Onset: 08-29-2023 01-23-2023 Other screening for suspected conditions (not mental disorders or infectious disease) (13 sources) Patient encounter status; Translations: [Encounter for screening for malignant neoplasm of colon] Onset: 03-01-2023 08-29-2023 Episodic Results Test Name Value Interpretation Reference Range Facility Colonoscopyon 10-23-2023 [facility] Surgical PathologyOrdered By : Nadia Loving on 10-23-2023 [facility] US Venous Reflux/Insuff, David Loweron 02-07-2022 US [...] by Silver Carmona on 02/07/2022 1034 Normal [facility] SCREENING MAMMOGRAM W/DEDRICK, BILATERAL*on 12-15-2021 SCREENING MAMMOGRAM [...] VERY IMPORTANT TO YOUR HEALTH. THE CURRENT [employer] GUIDELINES RECOMMENDS ANNUAL MAMMOGRAPHY BEGINNING AT AGE 40. THIS FACILITY USES A REMINDER SYSTEM TO ENSURE ALL PATIENTS RECEIVE REMINDER NOTIFICATIONS AT THE APPROPRIATE TIME BASED ON THE RECOMMENDATIONS OF THIS EXAM. Report reported and signed by Sivler Carmona on 12/15/2021 1022 Normal [facility] Comprehensive Metabolic Pane htatie 12-13-2021 Albumin [Mass/Vol] 4.6 g/dL Normal 3.6-5.[address] [facility] Pasteurizer Helper Comment on above: Performed By: #### T SH reflex FT4, LIPD, CMP #### [facility] [address] [place], [place] [id number] Albumin/Globulin [Mass ratio] 2.3 {ratio} Normal 1.0-2.5 [facility] Specialist Comment on above: Performed By: #### T SH reflex FT4, LIPD, CMP #### [facility] [address] [place], [place] [id number] ALP [Catalytic activity/Vol] 65 U/L Normal 35-119 [facility] Specialist Comment on above: Performed By: #### T SH reflex FT4, LIPD, CMP #### [facility] [address] [place], [place] [id number] ALT [Catalytic activity/Vol] 13 U/L Normal 6-33 [facility] Comment on above: Result Comment: 07/05 Female reference range changed. Performed By: #### T SH reflex FT4, LIPD, CMP #### [facility] [address] [place], [place] [id number] Anion gap [Moles/Vol] 18 mmol/L Normal 12-20 [facility] Comment on above: Result Comment: Effe ctive 08/10/2019 reference range changed. Performed By: #### T SH reflex FT4, LIPD, CMP #### [facility] [address] [place], [place] [id number] AST [Catalytic activity/Vol] 18 U/L Normal 9-34 [facility] Comment on above: Performed By: #### T SH reflex FT4, LIPD, CMP #### [facility] [address] [place], [place] [id number] Bilirubin [Mass/Vol] 0.44 mg/dL Normal 0.30-1.20 [facility] Comment on above: Performed By: #### T SH reflex FT4, LIPD, CMP #### [facility] [address] [place], [place] [id number] BUN/CREA 14 Ratio Normal 6-22 [facility] Comment on above: Performed By: #### T SH reflex FT4, LIPD, CMP #### [facility] [address] [place], [place] [id number] Calcium [Mass/Vol] 9.9 mg/dL Normal 8.6-10.2 [facility] Comment on above: Performed By: #### T SH reflex FT4, LIPD, CMP #### [facility] [address] [place], [place] [id number] Chloride [Moles/Vol] 102 mmol/L Normal 98-107 [facility] Comment on above: Performed By: #### T SH reflex FT4, LIPD, CMP #### [facility] [address] [place], [place] [id number] CO2 [Moles/Vol] 26 mmol/L Normal 20-31 [place] P[employer]izer Helper Comment on above: Performed By: #### T SH reflex FT4, LIPD, CMP #### [facility] [address] [place], [place] [id number] Creatinine [Mass/Vol] 0.9 mg/dL Normal 0.6-1.4 [facility] Specialist Comment on above: Performed By: #### T SH reflex FT4, LIPD, CMP #### [facility] [address] [place], [place] [id number] eGFRAA 83 mL/min/1.73m2 Normal >60 [facility] Specialist Comment on above: Performed By: #### T SH reflex FT4, LIPD, CMP #### [facility] [address] [place], [place] [id number] eGFRNAA 69 mL/min/1.73m2 Normal >60 [facility] Specialist Comment on above: Performed By: #### T SH reflex FT4, LIPD, CMP #### [facility] [address] [place], [place] [id number] Globulin (S) [Mass/Vol] 2.0 g/dL Normal 1.9-3.7 [facility] Specialist Comment on above: Performed By: #### T SH reflex FT4, LIPD, CMP #### [facility] [address] [place], [place] [id number] Glucose [Mass/Vol] 117 mg/dL High 65-99 [facility] Pasteurizer Helper Comment on above: Result Comment: For FASTING Glucose --- ADA reference ranges: Normal 65-99 mg/dl Prediabetes 100-125 Diabetes >/= 126 Performed By: #### T SH reflex FT4, LIPD, CMP #### [facility] [address] [place], [place] [id number] Potassium [Moles/Vol] 4.6 mmol/L Normal 3.5-5.5 [facility] Pasteurizer Helper Comment on above: Result Comment: Spec imen is hemolyzed. Results may be affected. Performed By: #### T SH reflex FT4, LIPD, CMP #### [facility] [address] [place], [place] [id number] Protein [Mass/Vol] 6.6 g/dL Normal 6.1-8.1 [facility] [place] [employer] Helper Comment on above: Performed By: #### T SH reflex FT4, LIPD, CMP #### [facility] [address] [place], [place] [id number] Sodium [Moles/Vol] 142 mmol/L Normal 135-146 [facility] [place] [employer] Helper Comment on above: Performed By: #### T SH reflex FT4, LIPD, CMP #### [facility] [address] [place], [place] [id number] Urea nitrogen [Mass/Vol] 13 mg/dL Normal 7-25 [facility] Pasteurizer Helper Comment on above: Performed By: #### T SH reflex FT4, LIPD, CMP #### [facility] [address] [place], [place] [id number] Lipid Panelon 12-13-2021 Cholesterol [Mass/Vol] 188 mg/dL Normal 125-200 [facility] Specialist Comment on above: Result Comment: Low risk < 200mg/dL Borderline risk 201-239 mg/dl High risk > or equal to 240 Performed By: #### T SH reflex FT4, LIPD, CMP #### [facility] [address] [place], [place] [id number] Cholesterol in HDL [Mass/Vol] 68 mg/dL Normal >40 [facility] P[employer]urizer Helper Comment on above: Result Comment: High Cardiovascular Risk HDL <40 mg/dL Low Cardiovascular Risk HDL > or equal to 60 mg/dl Performed By: #### T SH reflex FT4, LIPD, CMP #### [facility] [address] [place], [place] [id number] Cholesterol in LDL [Mass/Vol] 103 mg/dL Normal [facility] P[employer]urizer Helper Comment on above: Result Comment: LDL ATP III CLASSIFICATION LDL less than 100 mg/dl Optimal LDL 100-129 mg/dl Near or above optimal LDL 130-159 Borderline high LDL 160-189 High LDL greater than 189 mg/dl Very High Performed By: #### T SH reflex FT4, LIPD, CMP #### [facility] [address] [place], [place] [id number] Cholesterol in VLDL [Mass/Vol] 17 mg/dL Normal [facility] Pasteurizer Helper Comment on above: Performed By: #### T SH reflex FT4, LIPD, CMP #### [facility] [address] [place], [place] [id number] Cholesterol.total/Cho lesterol in HDL [Mass ratio] 3 {ratio} Normal [facility] Pasteurizer Helper Comment on above: Performed By: #### T SH reflex FT4, LIPD, CMP #### [facility] [address] [place], [place] [id number] Triglyceride [Mass/Vol] 83 mg/dL Normal 30-150 [facility] Pasteurizer Helper Comment on above: Result Comment: TRIG ATPIII CLASSIFICATIONS TRIG less than 150 mg/dl Normal TRIG 150-199 mg/dl Borderline High TRIG 200-500 mg/dl High TRIG greather than 500 mg/dl Very High Performed By: #### T SH reflex FT4, LIPD, CMP #### [facility] [address] [place], [place] [id number] TSH w/ Reflex to Free T4on 0 12-13-2021 TSH 3.260 uIU/mL Normal 0.400-4.500 [facility] Pasteurizer Helper Comment on above: Performed By: #### T SH reflex FT4, LIPD, CMP #### [facility] [address] [place], [place] [id number] XR Spine Cervical Complete*o n 12-13-2021 XR [...] by Silver Carmona on 12/13/2021 1031 Normal [facility] Specialist Vital Signs Date Time Vital Sign Value Performing Clinician [facility] 09-24-2023 15:43-0500 Body height 170.2 cm Aureliano SHARP Work Phone: [facility] 09-24-2023 15:43-0500 Body mass index (BMI) [Ratio] 54.88 kg/m2 Aureliano SHARP Work Phone: [facility] 09-24-2023 15:43-0500 Body weight 158.94 kg Aureliano Garvin MACHINE CEMENTER AND FOLDER-BRANCH OFFICE ADMINISTRATOR Work Phone: [facility] [employer] [facility] 09-24-2023 15:43-0500 Diastolic blood pressure 84 mm[Hg] Aureliano Garvin MACHINE CEMENTER AND FOLDER-BRANCH OFFICE ADMINISTRATOR Work Phone: [facility] [employer] [facility] 09-24-2023 15:43-0500 Systolic blood pressure 163 mm[Hg] Aureliano Garvin MACHINE CEMENTER AND FOLDER-BRANCH OFFICE ADMINISTRATOR Work Phone: [facility] [employer] [facility] 08-29-2023 15:45-0500 Body height 170.2 cm Cody Shrestha PA-C Work Phone: [facility] [employer] [facility] 08-29-2023 15:45-0500 Body mass index (BMI) [Ratio] 57.17 kg/m2 Cody Shrestha PA-C Work Phone: [facility] [employer] [facility] 08-29-2023 15:45-0500 Body temperature 97.7 [degF] Cody Shrestha PA-C Work Phone: [facility] 08-29-2023 15:45-0500 Body weight 165.56 kg Cody Shrestha PA-C Work Phone: [facility] 08-29-2023 15:45-0500 Diastolic blood pressure 86 mm[Hg] Cody Shrestha PA-C Work Phone: [facility] [employer] [facility] 08-29-2023 15:45-0500 Heart rate 62 /min Cody Shrestha PA-C Work Phone: [facility] 08-29-2023 15:45-0500 SaO2% (BldA) [Mass fraction] 97 % Cody Shrestha PA-C Work Phone: [facility] [employer] [facility] 08-29-2023 15:45-0500 Systolic blood pressure 124 mm[Hg] Cody Shrestha PA-C Work Phone: [facility] Encounters Encounter Date Encounter Type Care Provider Facility Start: 11-04-2023 Telephone encounter [facility] Comment on above: Carcinoid tumor of r ectum, unspecified whether malignant (Primary Dx) Start: 10-30-2023 Orders Only Not In System Ref Prov [facility] Start: 10-23-2023 Office outpatient vi sit 15 minutes Aureliano Zimmer Balwinder MACHINE CEMENTER AND FOLDER-BRANCH OFFICE ADMINISTRATOR Work Phone: [employer] Work Phone: Start: 10-23-2023 Orders Only Nadia Loving A [facility] Comment on above: Encounter for screen ing colonoscopy Start: 09-24-2023 End: 09-24-2023 ambulatory [facility] Start: 09-24-2023 End: 09-24-2023 Patient encounter procedure Aureliano Mesha Garvin MACHINE CEMENTER AND FOLDER-BRANCH OFFICE ADMINISTRATOR Work Phone: [facility] Comment on above: Encounter for screen ing colonoscopy (Primary Dx); Special screening for malignant neoplasm of colon Start: 09-02-2023 Refill Cody Shrestha PA-C Work Phone: [facility]/Abril Rodriguez MD Comment on above: Arthritis; Arthralgia, unspecified joint Start: 08-29-2023 End: 08-29-2023 ambulatory [facility] Start: 08-29-2023 Encounter for genera l adult medical examination without abnormal findings [facility] Start: 08-29-2023 End: 08-29-2023 Office outpatient visit 25 minutes Cody Shrestha PA-C Work Phone: [facility]/Abril Rodriguez MD Comment on above: Metabolic syndrome ( Primary Dx); Depression, unspecified depression type; PCOS (polycystic ovarian syndrome); Arthralgia, unspecified joint; Annual physical exam; Special screening for malignant neoplasm of colon Start: 08-29-2023 End: 08-29-2023 Patient encounter procedure Cody Shrestha PA-C Work Phone: [facility] Procedures Date Procedure Procedure Detail Performing Clinician Start: 10-23-2023 Level i surg patholo gy gross examination only Not In System Ref Prov Start: 08-29-2023 Follow-up visit Follow-up CODY SHRESTHA Start: 01-23-2023 Adult depression scr eening assessment Cody Shrestha PA-C Work Phone: Plan of Treatment Date Care Activity Detail Author Start: 09-24-2024 Adult BMI Screening Adult BMI Screen ing [facility] Start: 09-24-2024 Tobacco Screening Tobacco Screening [facility] Start: 08-29-2024 Adult BMI Screening Adult BMI Screen ing [facility] Start: 08-29-2024 Tobacco Screening Tobacco Screening [facility] Start: 04-05-2024 Influenza vaccination Influenza Vacc ine [facility] Start: 01-24-2024 Depression Screening Depression Scre ening [facility] Start: 11-14-2023 End: 11-14-2023 Patient encounter procedure 11/14/2023 3:00 PM EDT Office Visit [facility]/Abril Rodriguez MD [address] [place] [address] [phone] Cody Shrestha PA-C [address] [place] [address] [facility]/Abril Rodriguez MD Start: 11-13-2023 End: 11-13-2023 Patient encounter procedure 11/13/2023 1:00 PM EDT Office Visit [facility] [address] [place], [place] [id number] Og Smith DO [address] [place], [place] [id number] [facility] Start: 11-04-2023 End: 11-03-2024 CT Abdomen and Pelvis W contrast IV CT abdomen and pelvis with contrast Imaging Routine Carcinoid tumor of rectum, unspecified whether malignant Expected: 11/04/2023, Expires: 11/03/2024 [facility] Work Phone: Comment on above: Expected: 11/04/2023 , Expires: 11/03/2024 Start: 09-24-2023 End: 09-24-2023 Patient encounter procedure 09/24/2023 3:30 PM EST Office Visit [facility] [address] [place] [address] Aureliano Garvin, MACHINE CEMENTER AND FOLDER-BRANCH OFFICE ADMINISTRATOR [address] [facility] [address] [facility] Start: 04-05-2023 COVID-19 Vaccine ( season) COVID-19 Vaccine ( season) [facility] Start: 04-05-2023 Influenza vaccination Influenza Vacc ine [facility] Start: 2020 Administration of varicella zoster vaccine Zoster (Shingles) Vaccine (1 of 2) [facility] Start: 1991 Screening for malign ant neoplasm of cervix Pap Smear [facility] Start: 1989 DTaP,Tdap and Td Vaccines (1 - Tdap) DTaP,Tdap and Td Vaccines (1 - Tdap) [facility] Start: 1988 Adult BMI Follow Up Plan Adult BMI Follow Up Plan [facility] End: 08-29-2024 CBC W Auto Differential panel - Blood CBC auto differential Lab Routine Metabolic syndrome Annual physical exam 1 Occurrences starting 08/29/2023 until 08/29/2024 [facility]: Comment on above: 1 Occurrences starti ng 08/29/2023 until 08/29/2024 End: 09-24-2024 Colonoscopy Colonoscopy GI Routine Encounter for screening colonoscopy 1 Occurrences starting 09/24/2023 until 09/24/2024 [employer] Work Phone: Comment on above: 1 Occurrences starti ng 09/24/2023 until 09/24/2024 End: 08-29-2024 Comprehensive metabolic 2000 panel - Serum or Plasma Comprehensive metabolic panel Lab Routine Metabolic syndrome Depression, unspecified depression type Annual physical exam 1 Occurrences starting 08/29/2023 until 08/29/2024 [facility] Comment on above: 1 Occurrences starti ng 08/29/2023 until 08/29/2024 End: 08-29-2024 Hemoglobin A1c/Hemoglobin.total in Blood Hemoglobin A1c Lab Routine Metabolic syndrome Annual physical exam 1 Occurrences starting 08/29/2023 until 08/29/2024 [facility] Comment on above: 1 Occurrences starti ng 08/29/2023 until 08/29/2024 End: 08-29-2024 Lipid 1996 panel - Serum or Plasma Lipid profile Lab Routine Metabolic syndrome Annual physical exam 1 Occurrences starting 08/29/2023 until 08/29/2024 [facility] Comment on above: 1 Occurrences starti ng 08/29/2023 until 08/29/2024 End: 08-29-2024 Thyrotropin [Units/volume] in Serum or Plasma TSH Lab Routine Metabolic syndrome Annual physical exam 1 Occurrences starting 08/29/2023 until 08/29/2024 [facility] Comment on above: 1 Occurrences starti ng 08/29/2023 until 08/29/2024 End: 08-29-2024 Thyroxine (T4) free [Mass/volume] in Serum or Plasma T4, free Lab Routine Metabolic syndrome Annual physical exam 1 Occurrences starting 08/29/2023 until 08/29/2024 [facility] Comment on above: 1 Occurrences starti ng 08/29/2023 until 08/29/2024 Immunizations Immunization Date Immunization Notes Care Provider Maria Fernanda [facility] 05-23-2022 influenza virus vaccine, unspecified formulation Cody Shrestha PA-C Work Phone: [facility] Payers Date Payer Category Payer Unknown [employer] SS (PPO) [id number] 2023-Present [phone] [address] [place] [address] [id number] 2023 Unknown [id number] 1970 Unknown [id number] 1970 Unknown [id number] Social History Date Type Detail Facility Start: 01-23-2023 Tobacco smoking stat us NHIS Never smoked tobacco [facility] Start: 01-23-2023 Tobacco use and exposure Smokeless tobacco non-user [facility] Start: 08-29-2023 End: 09-24-2023 Alcohol intake Current drinker of alcohol (finding) [facility] Start: 01-23-2023 End: 08-29-2023 History of Social function [facility] Start: 01-23-2023 End: 08-29-2023 Tobacco use panel [facility] How hard is it for y ou to pay for the very basics like food, housing, medical care, and heating Not very hard [facility] Adolescent depressio n screening assessment 0 [facility] Start: 01-23-2023 Alcohol Comment social [facility] Start: 1970 Sex Assigned At Not on file P [facility] Clinical Notes 08-29-2023 to 11-04-2023 Telephone Encounter - Og Smith DO - 11/04/2023 11:52 AM EDTTelephone Encounter - Og Smith DO - 11/04/2023 11:52 AM Rakan Garvin APRN-VENUS - 09/24/2023 3:30 PM EST Note Date & Type Note Facility 11-04-2023 Miscellaneous Notes I spoke to patient about her findings of 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 She was having no problems this was found on a routine screening scope. 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 She voiced understanding of all the above. She will keep her appointment on November 12 in case something shows up on CT but if it is negative she may cancel that appointment later. 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 She was having no problems this was found on a routine screening scope. 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 She voiced understanding of all the above. She will keep her appointment on November 12 in case something shows up on CT but if it is negative she may cancel that appointment later. [facility] Work Phone: 11-04-2023 Miscellaneous Notes ----- Message from Og Smith DO sent at 11/04/2023 8:31 AM EDT ----- Regarding: Follow up appointment to discuss pathology results Have you been able to get in touch with this patient? She needs a follow up appointment to speak to me in person. Thanks, Dr. Loza ----- Message ----- From: SLOAN Keane Sent: 10/30/2023 8:52 AM EDT To: Og Smith DO Patient is scheduled on 11/13/23. I have informed Dr. Smith and sent him a message to let him know he can call patient to discuss pathology results. documented in this encounter [facility] 11-04-2023 Telephone encounter Note ----- Message from Og Smith DO sent at 11/04/2023 8:31 AM EDT ----- Regarding: Follow up appointment to discuss pathology results Have you been able to get in touch with this patient? She needs a follow up appointment to speak to me in person. Thanks, Dr. Loza ----- Message ----- From: SLOAN Keane Sent: 10/30/2023 8:52 AM EDT To: Og Smith DO [facility] 11-04-2023 Telephone encounter Note Patient is scheduled on 11/13/23. I have informed Dr. Smith and sent him a message to let him know he can call patient to discuss pathology results. [facility] 09-24-2023 History of Presen t illness Narrative Images from the original note were not included. Chief Complaint: Colon cancer screening History of Present Illness Ariana Aguilar is a 53 y.o. female who [...] Past Surgical History: Procedure Laterality Date APPENDECTOMY 1994 BREAST BIOPSY 2003 Benign BREAST LUMPECTOMY Right 2003 Benign, Dr. Smith CHOLECYSTECTOMY 1995 COLONOSCOPY EGD [...] results found for: INR , PROTIME Assessment Ariana Aguilar is a 53 y.o.female who presents [...] patient/family/caregiver Referring and communicating with other health patient care technician instructor Encounter for screening colonoscopy [Z12.11] AURELIANO GARVIN APRN-BRANCH OFFICE ADMINISTRATOR [facility] [place] This note was created with the assistance of a speech recognition program. While intending to generate a timely document that accurately reflects the content of the visit, no guarantee can be provided that every grammatical or spelling mistake has been or will be identified or corrected. Thank you for your understanding. ARON Manuel 09/24/23 1555 documented in this encounter [facility] 08-29-2023 History of Presen t illness Narrative Subjective Patient ID: Ariana Aguilar is a 53 y.o. female. Chief Complaint Chief Complaint Patient presents with Follow-up 6 month f/u, med check HPI HPI 3rd visit with Ariana, 6 month recheck to metabolic syndrome, arthritis, [...] 2003 Benign, Dr. Smith COLONOSCOPY GALLBLADDER SURGERY [address] Hue Cox. Right ovary remains TOTAL HIP ARTHROPLASTY Right 2017 TUBAL LIGATION 1996 Family History Family History [...] PA-C 08/29/23 1626 documented in this encounter [facility] 08-29-2023 Instructions Cody Shrestha PA-C - 08/29/2023 3:30 PM EST Chronic conditions well controlled Great job on weight loss Fasting labs Referral to Dr. Clemente, general surgeon for screening c-scope Recheck in 3 months documented in this encounter [facility] Evaluation note Diagnosis Metabolic syndrome- Primary Dysmetabolic Syndrome X Depression, unspecified depression type PCOS (polycystic ovarian syndrome) Polycystic ovaries Arthralgia, unspecified joint Annual physical exam Routine general medical examination at a health care facility Special screening for malignant neoplasm of colon Special screening for malignant neoplasms, colon [facility] Arthritis Unspecified arthropathy, site unspecified Arthralgia, unspecified joint [facility] Encounter for screening colonoscopy- Primary Special screening for malignant neoplasm of colon Special screening for malignant neoplasms, colon [facility] Encounter for screening colonoscopy [facility] Diagnosis Carcinoid tumor of rectum, unspecified whether malignant- Primary [facility] filedocumented in [facility] filedocumented in [facility] filedocumented in [facility] on filedocumented [facility] this [facility] Consultation (Routine) - Pending Review Specialty Diagnoses / Procedures Referred By [facility] Referred To Contact General Surgery Diagnoses Special screening for malignant neoplasm of colon Cody Shrestha PA-C [address] [place] [address] Og Clemente MD [address] [place] [address] Referral ID Status Reason Start Date Expiration Date Visits Requested Visits Authorized [id number] Pending Review Specialty Services Required 08/29/2023 08/28/[address] [facility] Summary Purpose Family History No Family History Records FoundNo Family History Records Found Advance Directives No Advanced Directives Records FoundNo Advanced Directives Records Found Reason for Referral Specialty Diagnoses / Procedures Referred By Contac t Referred To Contact Diagnoses Carcinoid tumor of rectum, unspecified whether malignant Procedures CT abdomen and pelvis with contrast Og Smith DO [address] [place] [address] Referral ID Status Reason Start Date Expiration Date V isits Requested Visits Authorized [id number] Pending Review 11/04/2023 11/03/2024 1 1 Additional Source Comments INFORMATION SOURCE (unrecogn ized section and content) DATE CREATED AUTHOR 02/07/2022 [facility] dical Specialist DATE CREATED AUTHOR 'S ORGANIZ ATION 10/02/2023 [facility] Reason for Visit (unrecogniz ed section and content) Reason Comments Follow-up 6 month f/u, med ronaldo ck Reason Comments Med Refill Reason Comments Colon Cancer Screening First colon Specialty Diagnoses / Procedures Referred By Contbasilio t Referred To Contact General Surgery Diagnoses Special screening for malignant neoplasm of colon Cody Shrestha PA-C [address] [address] Og Smith, [address] [place] [address] Referral ID Status Reason Start Date Expiration Date V isits Requested Visits Authorized [id number] Closed Specialty Services Required 08/29/2023 08/28/2024 1 1 Care Teams (unrecognized sec tion and content) Director Engineering Relationship Specialty Start Date End Date Abirl Rodriguez MD [address] [address] PCP - General Internal Medicine 01/23/23 Director Engineering Relationship Specialty Start Date End Date Abril Rodriguez MD [address] [address] PCP - General Internal Medicine 01/23/23 Director Engineering Relationship Specialty Start Date End Date Abril Rodriguez MD [address] [address] PCP - General Internal Medicine 01/23/23 Director Engineering Relationship Specialty Start Date End Date Abril Rodriguez MD [address] [address] PCP - General Internal Medicine 01/23/23 Director Engineering Relationship Specialty Start Date End Date Abril Rodriguez MD [address] [address] PCP - General Internal Medicine 01/23/23 Director Engineering Relationship Specialty Start Date End Date Abril Rodriguez MD [address] [address] PCP - General Internal Medicine 01/23/23 Director Engineering Relationship Specialty Start Date End Date Abril Rodriguez MD [address] [address] PCP - General Internal Medicine 01/23/23 Director Engineering Relationship Specialty Start Date End Date Abril Rodriguez MD [address] [address] PCP - General Internal Medicine 01/23/23 FOR [...] BE BASED ON THE PRIMARY CLINICAL RECORDS. [employer] provides no warranty or guarantee of the accuracy or completeness of information in this document.
--- NOTE | 2023-11-05 12:20 | CT_ITS ---
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 TECHNIQUE: Axial, Coronal, and Sagittal images were obtained without and/or with IV contrast as indicated by examination type. Dose reduction techniques were achieved by using automated exposure control and/or adjustment of mA and/or kV according to patient size and/or use of iterative reconstruction technique. FINDINGS: LUNG BASES: No visible pulmonary or pleural disease. LIVER: No enlargement, atrophy, suspicious density, or significant focal lesion. BILIARY: Cholecystectomy. PANCREAS: No lesion, fluid collection, or abnormal duct dilatation. SPLEEN: No enlargement or focal lesion. ADRENALS: No mass or enlargement. KIDNEYS: No mass, obstruction, or calcification. BOWEL/MESENTERY: 2.6 cm long segment of mid transverse colon demonstrating mild circumferential wall thickening. Mild diverticulosis of sigmoid colon without acute inflammatory changes. No mesenteric changes or adenopathy. AORTA/VASCULAR: No aneurysm or dissection. RETROPERITONEUM: No mass or adenopathy. LYMPH NODES: No adenopathy. URINARY BLADDER: No visible focal wall thickening, lesion, or calculus. PELVIC ORGANS: Hysterectomy. ABDOMINAL WALL: No mass or hernia. BONES: Marked degenerative disc disease L4-5, L5-S1. No fracture or bone lesion. OTHER: Negative. CT/CT abdomen pelvis w con IMPRESSION: 1. No appreciable large polyp, focal wall thickening, or abnormality in the region of the rectum. 2. Short 2.6 and meter long segment of circumferential wall thickening involving the mid transverse colon; peristalsis versus tumor. If not already performed, colonoscopy is recommended. 3. No lymphadenopathy. 4. Marked degenerative disc disease of lower lumbar spine. Electronically authenticated by: KHANH BONNER Date: 11/05/2023 12:58
== END 2023-11-05 11:57 | disposition home or self-care (01) ==
LOC: CT 11:56
PROVIDERS: Visit Provider Surgery
DX: D3A.026 Benign carcinoid tumor of the rectum (principal)
CPT/HCPCS: 74177; Q9967

== ENCOUNTER 2023-11-07 07:47 | Outpatient (OUT) | payer BC, SELFPAY ==
--- OUTSIDE RECORDS SUMMARY | 2023-11-07 07:51 | XMS_ITS | CCD ---
Author Organization [facility] Care Team Providers Care Boring Inspector Name Role Phone Jennifer BOWSER, Abril Primary Care Provider CODY SHRESTHA Attending Unavailable ABRIL RODRIGUEZ Referring Unavailable ABRIL RODRIGUEZ Primary Care Unavailable AURELIANO GARVIN Attending Unavailable ABRIL RODRIGUEZ Referring Unavailable ABRIL RODRIGUEZ Primary Care Unavailable Allergies Allergy Classification Reported Allergen(s) Allergy Type Date of Onset Reaction(s) Facility (9 sources) Sulfonamides (Antibiotic); Translations: [SULFA (SULFONAMIDE ANTIBIOTICS)] Propensity to adverse reactions to drug 3 [facility] Medications Current Medications Medication Drug Class(es) [...] Value Interpretation Reference Range Facility Colonoscopyon 10-23-2023 [facility] Surgical PathologyOrdered By : Nadia Loving on 10-23-2023 [facility] US Venous Reflux/Insuff, David Loweron 02-07-2022 [...] by Silver Carmona on 02/07/2022 1034 Normal [facility] SCREENING MAMMOGRAM W/DEDRICK, BILATERAL*on 12-15-2021 SCREENING [...] VERY IMPORTANT TO YOUR HEALTH. THE CURRENT [employer] GUIDELINES RECOMMENDS ANNUAL MAMMOGRAPHY BEGINNING AT AGE 40. THIS FACILITY USES A REMINDER SYSTEM TO ENSURE ALL PATIENTS RECEIVE REMINDER NOTIFICATIONS AT THE APPROPRIATE TIME BASED ON THE RECOMMENDATIONS OF THIS EXAM. Report reported and signed by Silver Carmona on 12/15/2021 1022 Normal [facility] Comprehensive Metabolic Pane hattie 12-13-2021 Albumin [Mass/Vol] 4.6 g/dL Normal 3.6-5.1 [facility] Grinder Operator External Tool Comment on above: Performed By: #### T SH reflex FT4, LIPD, CMP #### [facility] [address], [place] [id number] Albumin/Globulin [Mass ratio] 2.3 {ratio} Normal 1.0-2.5 [facility] Specialist Comment on above: Performed By: #### T SH reflex FT4, LIPD, CMP #### [facility] [address], [place] [id number] ALP [Catalytic activity/Vol] 65 U/L Normal 35-119 [facility] Specialist Comment on above: Performed By: #### T SH reflex FT4, LIPD, CMP #### [facility] [address], [place] [id number] ALT [Catalytic activity/Vol] 13 U/L Normal 6-33 [facility] Comment on above: Result Comment: 07/05 Female reference range changed. Performed By: #### T SH reflex FT4, LIPD, CMP #### [facility] [address], [place] [id number] Anion gap [Moles/Vol] 18 mmol/L Normal 12-20 [facility] Comment on above: Result Comment: Effe ctive 08/10/2019 reference range changed. Performed By: #### T SH reflex FT4, LIPD, CMP #### [facility] [address], [place] [id number] AST [Catalytic activity/Vol] 18 U/L Normal 9-34 [facility] Comment on above: Performed By: #### T SH reflex FT4, LIPD, CMP #### [facility] [address], [place] [id number] Bilirubin [Mass/Vol] 0.44 mg/dL Normal 0.30-1.20 [facility] Comment on above: Performed By: #### T SH reflex FT4, LIPD, CMP #### [facility] [address], [place] [id number] BUN/CREA 14 Ratio Normal 6-22 [facility] Comment on above: Performed By: #### T SH reflex FT4, LIPD, CMP #### [facility] [address], [place] [id number] Calcium [Mass/Vol] 9.9 mg/dL Normal 8.6-10.2 [facility] Comment on above: Performed By: #### T SH reflex FT4, LIPD, CMP #### [facility] [address], [place] [id number] Chloride [Moles/Vol] 102 mmol/L Normal 98-107 [facility] Comment on above: Performed By: #### T SH reflex FT4, LIPD, CMP #### [facility] [address], [place] [id number] CO2 [Moles/Vol] 26 mmol/L Normal 20-31 [facility] [place] Gr[employer] Operator External [employer] Comment on above: Performed By: #### T SH reflex FT4, LIPD, CMP #### [facility] [address], [place] [id number] Creatinine [Mass/Vol] 0.9 mg/dL Normal 0.6-1.4 [facility] Specialist Comment on above: Performed By: #### T SH reflex FT4, LIPD, CMP #### [facility] [address], [place] [id number] eGFRAA 83 mL/min/1.73m2 Normal >60 [facility] Specialist Comment on above: Performed By: #### T SH reflex FT4, LIPD, CMP #### [facility] [address], [place] [id number] eGFRNAA 69 mL/min/1.73m2 Normal >60 [facility] Specialist Comment on above: Performed By: #### T SH reflex FT4, LIPD, CMP #### [facility] [address], [place] [id number] Globulin (S) [Mass/Vol] 2.0 g/dL Normal 1.9-3.7 [facility] Specialist Comment on above: Performed By: #### T SH reflex FT4, LIPD, CMP #### [facility] [address], [place] [id number] Glucose [Mass/Vol] 117 mg/dL High 65-99 [facility] Grinder Operator External [employer] Comment on above: Result Comment: For FASTING Glucose --- ADA reference ranges: Normal 65-99 mg/dl Prediabetes 100-125 Diabetes >/= 126 Performed By: #### T SH reflex FT4, LIPD, CMP #### [facility] [address], [place] [id number] Potassium [Moles/Vol] 4.6 mmol/L Normal 3.5-5.5 [facility] Grinder Operator External [employer] Comment on above: Result Comment: Spec imen is hemolyzed. Results may be affected. Performed By: #### T SH reflex FT4, LIPD, CMP #### [facility] [address], [place] [id number] Protein [Mass/Vol] 6.6 g/dL Normal 6.1-8.1 [facility] [place] [employer] External [employer] Comment on above: Performed By: #### T SH reflex FT4, LIPD, CMP #### [facility] [address], [place] [id number] Sodium [Moles/Vol] 142 mmol/L Normal 135-146 [facility] [place] Gr[employer] Operator [employer] Comment on above: Performed By: #### T SH reflex FT4, LIPD, CMP #### [facility] [address], [place] [id number] Urea nitrogen [Mass/Vol] 13 mg/dL Normal 7-25 [facility] Grinder Operator External Tool Comment on above: Performed By: #### T SH reflex FT4, LIPD, CMP #### [facility] [address], [place] [id number] Lipid Panelon 12-13-2021 Cholesterol [Mass/Vol] 188 mg/dL Normal 125-200 [facility] Specialist Comment on above: Result Comment: Low risk < 200mg/dL Borderline risk 201-239 mg/dl High risk > or equal to 240 Performed By: #### T SH reflex FT4, LIPD, CMP #### [facility] [address], [place] [id number] Cholesterol in HDL [Mass/Vol] 68 mg/dL Normal >40 [facility] Grinder Operator External [employer] Comment on above: Result Comment: High Cardiovascular Risk HDL <40 mg/dL Low Cardiovascular Risk HDL > or equal to 60 mg/dl Performed By: #### T SH reflex FT4, LIPD, CMP #### [facility] [address], [place] [id number] Cholesterol in LDL [Mass/Vol] 103 mg/dL Normal [facility] Gr[employer] Comment on above: Result Comment: LDL ATP III CLASSIFICATION LDL less than 100 mg/dl Optimal LDL 100-129 mg/dl Near or above optimal LDL 130-159 Borderline high LDL 160-189 High LDL greater than 189 mg/dl Very High Performed By: #### T SH reflex FT4, LIPD, CMP #### [facility] [address], [place] [id number] Cholesterol in VLDL [Mass/Vol] 17 mg/dL Normal [facility] Gr[employer] Comment on above: Performed By: #### T SH reflex FT4, LIPD, CMP #### [facility] [address], [place] [id number] Cholesterol.total/Cho lesterol in HDL [Mass ratio] 3 {ratio} Normal [facility] Gr[employer] Comment on above: Performed By: #### T SH reflex FT4, LIPD, CMP #### [facility] [address], [place] [id number] Triglyceride [Mass/Vol] 83 mg/dL Normal 30-150 [facility] Grinder Operator External [employer] Comment on above: Result Comment: TRIG ATPIII CLASSIFICATIONS TRIG less than 150 mg/dl Normal TRIG 150-199 mg/dl Borderline High TRIG 200-500 mg/dl High TRIG greather than 500 mg/dl Very High Performed By: #### T SH reflex FT4, LIPD, CMP #### [facility] [address], [place] [id number] TSH w/ Reflex to Free T4on 0 12-13-2021 TSH 3.260 uIU/mL Normal 0.400-4.500 [facility] Grinder Operator External Tool Comment on above: Performed By: #### T SH reflex FT4, LIPD, CMP #### [facility] [address], [place] [id number] XR Spine Cervical Complete*o n 12-13-2021 XR [...] by Silver Carmona on 12/13/2021 1031 Normal [facility] Specialist Vital Signs Date Time Vital Sign Value Performing Clinician Trinity stanley 09-24-2023 15:43-0500 Body height 170.2 cm Aureliano SHARP Work Phone: [facility] 09-24-2023 15:43-0500 Body mass index (BMI) [Ratio] 54.88 kg/m2 Aureliano SHARP Work Phone: [facility] 09-24-2023 15:43-0500 Body weight 158.94 kg Aureliano Garvin CYLINDER PRESS FEEDER-ELECTRIC MOTOR TESTER Work Phone: [facility] [employer] [facility] 09-24-2023 15:43-0500 Diastolic blood pressure 84 mm[Hg] Aureliano Garvin CYLINDER PRESS FEEDER-ELECTRIC MOTOR TESTER Work Phone: [facility] [employer] [facility] 09-24-2023 15:43-0500 Systolic blood pressure 163 mm[Hg] Aureliano Garvin CYLINDER PRESS FEEDER-ELECTRIC MOTOR TESTER Work Phone: [facility] [employer] [facility] 08-29-2023 15:45-0500 Body height 170.2 cm Cody Shrestha PA-C Work Phone: [facility] [employer] [facility] 08-29-2023 15:45-0500 Body mass index (BMI) [Ratio] 57.17 kg/m2 Cody Shrestha PA-C Work Phone: [facility] [employer] [facility] 08-29-2023 15:45-0500 Body temperature 97.7 [degF] Cody Shrestha PA-C [facility] 08-29-2023 15:45-0500 Body weight 165.56 kg Cody Shrestha PA-C Work Phone[facility] 08-29-2023 15:45-0500 Diastolic blood pressure 86 mm[Hg] Cody Shrestha PA-C Work Phone: [facility] [employer] [facility] 08-29-2023 15:45-0500 Heart rate 62 /min Cody Shrestha PA-C Work Phone[facility] 08-29-2023 15:45-0500 SaO2% (BldA) [Mass fraction] 97 % Cody Shrestha PA-C Work Phone: [facility] [employer] [facility] 08-29-2023 15:45-0500 Systolic blood pressure 124 mm[Hg] Cody Shrestha PA-C Work Phone: [facility] Encounters Encounter Date Encounter Type Care Provider Facility Start: 11-04-2023 [facility] Comment on above: Carcinoid tumor of r ectum, unspecified whether malignant (Primary Dx) Start: 10-30-2023 Orders Only Not In System Ref Prov [facility] Start: 10-23-2023 Office outpatient vi sit 15 minutes Aureliano Zimmer Balwinder CYLINDER PRESS FEEDER-ELECTRIC MOTOR TESTER Work Phone: [employer] Work Phone: Start: 10-23-2023 Orders Only Nadia Loving A [facility] Comment on above: Encounter for screen ing colonoscopy Start: 09-24-2023 End: 09-24-2023 ambulatory [facility] Start: 09-24-2023 End: 09-24-2023 Patient encounter procedure Aureliano Mesha Garvin CYLINDER PRESS FEEDER-ELECTRIC MOTOR TESTER Work Phone: [facility] Comment on above: Encounter for screen ing colonoscopy (Primary Dx); Special screening for malignant neoplasm of colon Start: 09-02-2023 Refill Cody Shrestha PA-C Work Phone: [facility]/Abril Rodriguez MD Comment on above: Arthritis; Arthralgia, unspecified joint Start: 08-29-2023 End: 08-29-2023 ambulatory [facility] Start: 08-29-2023 Encounter for genera l adult medical examination without abnormal findings [facility] Start: 08-29-2023 End: 08-29-2023 Office outpatient visit 25 minutes Cody Shrestha PA-C Work Phone: [facility]/Abril Rodriguez MD Comment on above: Metabolic syndrome ( Primary Dx); Depression, unspecified depression type; PCOS (polycystic ovarian syndrome); Arthralgia, unspecified joint; Annual physical exam; Special screening for malignant neoplasm of colon Start: 08-29-2023 End: 08-29-2023 Patient encounter procedure Cody Shrestha PA-C Work Phone: [facility] Procedures Date Procedure Procedure Detail Performing Clinician Start: 10-23-2023 Level i surg patholo gy gross examination only Not In System Ref Prov Start: 08-29-2023 Follow-up visit Follow-up CODY SHRESTHA Start: 01-23-2023 Adult depression scr eening assessment Cody Shrestha PA-C Work Phone: Plan of Treatment Date Care Activity Detail Author Start: 09-24-2024 Adult BMI Screening Adult BMI Screen ing [facility] Start: 09-24-2024 Tobacco Screening Tobacco Screening [facility] Start: 08-29-2024 Adult BMI Screening Adult BMI Screen ing [facility] Start: 08-29-2024 Tobacco Screening Tobacco Screening [facility] Start: 04-05-2024 Influenza vaccination Influenza Vacc ine [facility] Start: 01-24-2024 Depression Screening Depression Scre ening [facility] Start: 11-14-2023 End: 11-14-2023 Patient encounter procedure 11/14/2023 3:00 PM EDT Office Visit [facility]/Abril Rodriguez MD [address] [place] [phone] Cody Shrestha PA-C [address] [place] [address] [facility]/Abril Rodriguez MD Start: 11-13-2023 End: 11-13-2023 Patient encounter procedure 11/13/2023 1:00 PM EDT Office Visit [facility] [address] [place], [place] [phone] Og Smith DO [address] [place], [place] [phone] [facility] Start: 11-04-2023 End: 11-03-2024 CT Abdomen and Pelvis W contrast IV CT abdomen and pelvis with contrast Imaging Routine Carcinoid tumor of rectum, unspecified whether malignant Expected: 11/04/2023, Expires: 11/03/2024 [facility] Work Phone: Comment on above: Expected: 11/04/2023 , Expires: 11/03/2024 Start: 09-24-2023 End: 09-24-2023 Patient encounter procedure 09/24/2023 3:30 PM EST Office Visit [facility] [address] [place] [address] Aureliano Garvin, CYLINDER PRESS FEEDER-ELECTRIC MOTOR TESTER [address] [facility] [address] [facility] Start: 04-05-2023 COVID-19 Vaccine ( season) COVID-19 Vaccine ( season) [facility] Start: 04-05-2023 Influenza vaccination Influenza Vacc ine [facility] Start: 2020 Administration of varicella zoster vaccine Zoster (Shingles) Vaccine (1 of 2) [facility] Start: 1991 Screening for malign ant neoplasm of cervix Pap Smear [facility] Start: 1989 DTaP,Tdap and Td Vaccines (1 - Tdap) DTaP,Tdap and Td Vaccines (1 - Tdap) [facility] Start: 1988 Adult BMI Follow Up Plan Adult BMI Follow Up Plan [facility] End: 08-29-2024 CBC W Auto Differential panel - Blood CBC auto differential Lab Routine Metabolic syndrome Annual physical exam 1 Occurrences starting 08/29/2023 until 08/29/2024 [facility] Work [facility]: Comment on above: 1 Occurrences starti ng 08/29/2023 until 08/29/2024 End: 09-24-2024 Colonoscopy Colonoscopy GI Routine Encounter for screening colonoscopy 1 Occurrences starting 09/24/2023 until 09/24/2024 [employer] Work Phone: Comment on above: 1 Occurrences starti ng 09/24/2023 until 09/24/2024 End: 08-29-2024 Comprehensive metabolic 2000 panel - Serum or Plasma Comprehensive metabolic panel Lab Routine Metabolic syndrome Depression, unspecified depression type Annual physical exam 1 Occurrences starting 08/29/2023 until 08/29/2024 [facility] Comment on above: 1 Occurrences starti ng 08/29/2023 until 08/29/2024 End: 08-29-2024 Hemoglobin A1c/Hemoglobin.total in Blood Hemoglobin A1c Lab Routine Metabolic syndrome Annual physical exam 1 Occurrences starting 08/29/2023 until 08/29/2024 [facility] Comment on above: 1 Occurrences starti ng 08/29/2023 until 08/29/2024 End: 08-29-2024 Lipid 1996 panel - Serum or Plasma Lipid profile Lab Routine Metabolic syndrome Annual physical exam 1 Occurrences starting 08/29/2023 until 08/29/2024 [facility] Comment on above: 1 Occurrences starti ng 08/29/2023 until 08/29/2024 End: 08-29-2024 Thyrotropin [Units/volume] in Serum or Plasma TSH Lab Routine Metabolic syndrome Annual physical exam 1 Occurrences starting 08/29/2023 until 08/29/2024 [facility] Comment on above: 1 Occurrences starti ng 08/29/2023 until 08/29/2024 End: 08-29-2024 Thyroxine (T4) free [Mass/volume] in Serum or Plasma T4, free Lab Routine Metabolic syndrome Annual physical exam 1 Occurrences starting 08/29/2023 until 08/29/2024 [facility] Comment on above: 1 Occurrences starti ng 08/29/2023 until 08/29/2024 Immunizations Immunization Date Immunization Notes Care Provider Maria Fernanda [facility] 05-23-2022 influenza virus vaccine, unspecified formulation Cody Shrestha PA-C Work Phone: [facility] Payers Date Payer Category Payer Unknown [employer] SS (PPO) [id number] 2023-Present [phone] [address] [place] [address] [id number] 2023 Unknown [id number] 1970 Unknown [id number] 1970 Unknown [id number] Social History Date Type Detail Facility Start: 01-23-2023 Tobacco smoking stat us NHIS Never smoked tobacco [facility] Start: 01-23-2023 Tobacco use and exposure Smokeless tobacco non-user [facility] Start: 08-29-2023 End: 09-24-2023 Alcohol intake Current drinker of alcohol (finding) [facility] Start: 01-23-2023 End: 08-29-2023 History of Social function [facility] Start: 01-23-2023 End: 08-29-2023 Tobacco use panel [facility] How hard is it for y ou to pay for the very basics like food, housing, medical care, and heating Not very hard [facility] Adolescent depressio n screening assessment 0 [facility] Start: 01-23-2023 Alcohol Comment social [facility] Start: 1970 Sex Assigned At Not on file [facility] Clinical Notes 08-29-2023 to 11-04-2023 Telephone [...] that appointment later. documented in this encounter [facility] 11-04-2023 Telephone encounter Note I spoke [...] negative she may cancel that appointment later. [facility] Work Phone: 11-04-2023 Miscellaneous Notes ----- [...] discuss pathology results. documented in this encounter [facility] 11-04-2023 Telephone encounter Note ----- Message [...] 8:52 AM EDT To: Og Smith DO [facility] 11-04-2023 Telephone encounter Note Patient is scheduled on 11/13/23. I have informed Dr. Smith and sent him a message to let him know he can call patient to discuss pathology results. [employer] [facility] [facility] 09-24-2023 History of Presen t illness [...] patient/family/caregiver Referring and communicating with other health career education teacher Encounter for screening colonoscopy [Z12.11] AURELIANO GARVIN APRN-ELECTRIC MOTOR TESTER [facility] This note was created with the assistance of a speech recognition program. While intending to generate a timely document that accurately reflects the content of the visit, no guarantee can be provided that every grammatical or spelling mistake has been or will be identified or corrected. Thank you for your understanding. ARON Manuel 09/24/23 1555 documented [facility] this encounter [facility]-29-2023 History of Presen t illness Narrative [...] PA-C 08/29/23 1626 documented in this encounter [facility] 08-29-2023 Instructions Cody Shrestha PA-C - 08/29/2023 3:30 PM EST Chronic conditions well controlled Great job on weight loss Fasting labs Referral to Dr. Clemente, general surgeon for screening c-scope Recheck in 3 months documented in this encounter [facility] Evaluation note Diagnosis Metabolic syndrome- Primary Dysmetabolic Syndrome X Depression, unspecified depression type PCOS (polycystic ovarian syndrome) Polycystic ovaries Arthralgia, unspecified joint Annual physical exam Routine general medical examination at a health care facility Special screening for malignant neoplasm of colon Special screening for malignant neoplasms, colon [facility] Diagnosis Arthritis Unspecified arthropathy, site unspecified Arthralgia, unspecified joint [facility] Diagnosis Encounter for screening colonoscopy- Primary Special screening for malignant neoplasm of colon Special screening for malignant neoplasms, colon [facility] Diagnosis Encounter for screening colonoscopy [facility] Diagnosis Carcinoid tumor of rectum, unspecified whether malignant- Primary documented in this [facility] on filedocumented in this encounter [facility] SystemInstructionsNot on filedocumented in this encounter [facility] SystemInstructionsNot on filedocumented in this encounter [facility] SystemInstructionsNot on filedocumented in this encounter [facility] SystemInstructionsNot on filedocumented in this encounter [facility] (narrative)* Consultation (Routine) - Pending Review Specialty Diagnoses / Procedures Referred By [facility] Referred To Contact General Surgery Diagnoses Special screening for malignant neoplasm of colon Cody Shrestha PA-C [address] [place] [address] Og Clemente MD [address] [place] [address] Referral ID Status Reason Start Date Expiration Date Visits Requested Visits Authorized [id number] Pending Review Specialty Services Required 08/29/2023 08/28/2024 1 1 [facility] Summary Purpose Family History No Family History Records FoundNo Family History Records Found Advance Directives No Advanced Directives Records FoundNo Advanced Directives Records Found Reason for Referral Specialty Diagnoses / Procedures Referred By Contac t Referred To Contact Diagnoses Carcinoid tumor of rectum, unspecified whether malignant Procedures CT abdomen and pelvis with contrast Og Smith DO [address] [place] [address] Referral ID Status Reason Start Date Expiration Date V isits Requested Visits Authorized [id number] Pending Review 11/04/2023 11/03/2024 1 1 Additional Source Comments INFORMATION SOURCE (unrecogn ized section and content) DATE CREATED AUTHOR 02/07/2022 [facility] dical Specialist DATE CREATED AUTHOR 'S ORGANIZ [...] of colon Cody Shrestha PA-C [address] [address] Og Smith, [address] [place] [address] Referral ID Status Reason Start Date Expiration Date V isits Requested Visits Authorized [id number] Closed Specialty Services Required 08/29/2023 08/28/2024 1 1 Care Teams (unrecognized sec tion and content) Boring Inspector Relationship Specialty Start Date End Date Abril Rodriguez MD [address] [address] PCP - General Internal Medicine 01/23/23 Boring Inspector Relationship Specialty Start Date End Date Abril Rodriguez MD [address] [address] PCP - General Internal Medicine 01/23/23 Boring Inspector Relationship Specialty Start Date End Date Abril Rodriguez MD [address] [address] PCP - General Internal Medicine 01/23/23 Boring Inspector Relationship Specialty Start Date End Date Abril Rodriguez MD [address] [address] PCP - General Internal Medicine 01/23/23 Boring Inspector Relationship Specialty Start Date End Date Abril Rodriguez MD [address] [address] PCP - General Internal Medicine 01/23/23 Boring Inspector Relationship Specialty Start Date End Date Abril Rodriguez MD [address] [address] PCP - General Internal Medicine 01/23/23 Boring Inspector Relationship Specialty Start Date End Date Abril Rodriguez MD [id number] [address] PCP - General Internal Medicine 01/23/23 Boring Inspector Relationship Specialty Start Date End Date Abril Rodriguez MD [id number] [address] PCP - General Internal Medicine 01/23/23 FOR [...] BE BASED ON THE PRIMARY CLINICAL RECORDS. [employer] provides no warranty or guarantee of the accuracy or completeness of information in this document.
[2023-11-07 08:30] LABS: Basophils Absolute Auto 0.1 10^3/uL (0.0-0.1); Basophils Percent Auto 0.9 % (0.2-2.0); Eosinophils Absolute Auto 0.1 10^3/uL (0.0-0.7); Eosinophils Percent Auto 1.7 % (0.9-7.0); Hematocrit 41.9 % (36.0-48.0); Hemoglobin 13.5 g/dL (12.0-16.0); Immature Granulocytes Abs Auto 0.02 10^3/uL (0.00-0.03); Immature Granulocytes Pct Auto 0.3 % (0.0-0.5); Lymphocytes Percent Auto 30.9 % (20.5-60.0); Mean Corpuscular HGB Conc 32.2 g/dL (29.9-35.2); Mean Corpuscular Hemoglobin 28.5 pg (26.7-34.0); Mean Corpuscular Volume 88.6 fL (81.0-99.0); Mean Platelet Volume 11.8 fL (9.5-13.5); Monocytes Absolute Auto 0.4 10^3/uL (0.3-0.8); Monocytes Percent Auto 5.8 % (1.7-12.0); Neutrophils Absolute Auto 3.9 10^3/uL (1.4-6.5); Neutrophils Percent Auto 60.4 % (43.0-75.0); Platelet Count 240 10^3/uL (150-450); Red Blood Count 4.73 10^6/uL (4.20-5.40); Red Cell Distribution Width 14.4 % (11.0-15.0); White Blood Count 6.4 10^3/uL (4.0-11.0)
[2023-11-07 09:04] LABS: Alanine Aminotransferase 22 U/L (14-59); Albumin Globulin Ratio 0.9; Albumin Level 3.4 g/dL (3.4-5.0); Alkaline Phosphatase 67 U/L (46-116); Aspartate Amino Transferase 19 U/L (15-37); BUN Creatinine Ratio 12.4; Bilirubin Total 0.6 mg/dL (0.2-1.0); Calcium 9.2 mg/dL (8.5-10.1); Chloride 104 mmol/L (98-107); Chol HDL Ratio 2.9; Cholesterol 171 mg/dL (<=200); Estimated GFR (African America >60 (>=60); Estimated GFR (Non-African Ame >60 (>=60); Globulin 3.6 g/dL; Glucose 103 mg/dL (74-106); HDL Cholesterol 59 mg/dL (40-60); LDL Cholesterol Calculated 99.8 mg/dL; Sodium 142 mmol/L (136-145); Thyroid Stimulating Hormone 3.216 uIU/mL (0.358-3.740); Triglycerides 61 mg/dL (<=150); VLDL CHOLESTEROL 12.2 mg/dL
[2023-11-07 11:03] LABS: Estimated Average Glucose 120 mg/dL; Glycohemoglobin A1C 5.8 % (4.5-6.2)
== END 2023-11-07 07:48 | disposition home or self-care (01) ==
LOC: LAB 07:48
DX: Z00.00 Encounter for general adult medical examination without abnormal findings (principal)
CPT/HCPCS: 36415; 80053; 80061; 83036; 84443; 85025

== ENCOUNTER 2024-05-21 13:02 | Outpatient (OUT) | payer BC, SELFPAY ==
--- OUTSIDE RECORDS SUMMARY | 2024-05-21 13:23 | XMS_ITS | CCD ---
Author Organization [facility] [place] ion Partnership [facility] Care Team Providers Care Property Claims Manager Name Role Phone Jennifer BOWSER, Abril Primary Care Provider JENNIFER, ABRIL Referring Unavailable NARRA, ABRIL Primary Care Unavailable CODY SHRESTHA Attending Unavailable NARRA, ABRIL Referring Unavailable NARRA, ABRIL Primary Care Unavailable CODY SHRESTHA Attending Unavailable NARRA, ABRIL Referring Unavailable NARRA, ABRIL Primary Care Unavailable AURELIANO GARVIN Attending Unavailable NARRA, ABRIL Referring Unavailable NARRA, ABRIL Primary Care Unavailable CODY SHRESTHA Attending Unavailable NARRA, ABRIL Referring Unavailable NARRA, ABRIL Primary Care Unavailable Allergies Allergy Classification Reported Allergen(s) Allergy Type Date of Onset Reaction(s) Facility (11 sources) Sulfonamides (Antibiotic); Translations: [SULFA (SULFONAMIDE ANTIBIOTICS)] Propensity to adverse reactions to drug 3 [facility] Medications Current Medications Medication Drug Class(es) Dates Sig (Normalized) Sig (Original) escitalopram 20 mg oral tablet (10 sources) Serotonin Reuptake Inhibitor Start: 04-15-2024 take 1 tablet by mouth in the morning escitalopram (LEXAPRO) 20 mg tablet Indications: Depression, unspecified depression type Take 1 tablet (20 mg total) by mouth in the morning. 90 tablet 1 04/15/2024 Active Start: 07-30-2023 take 1 tablet by shawna th in the morning escitalopram (LEXAPRO) 20 mg tablet Indications: Depression, unspecified depression type TAKE 1 TABLET (20 MG TOTAL) BY MOUTH IN THE MORNING 90 tablet 1 07/30/2023 Active loratadine 10 mg oral tablet (10 sources) Start: 02-26-2023 take 1 tablet by mouth in the morning loratadine (CLARITIN) 10 mg tablet Take 1 tablet (10 mg total) by mouth in the morning. 90 tablet 3 02/26/2023 Active meloxicam 7.5 mg oral tablet (11 sources) Nonsteroidal Anti-inflammatory Drug Start: 04-15-2024 take 1 tablet by mouth in the morning meloxicam (MOBIC) 7.5 mg tablet Indications: Arthritis , Arthralgia, unspecified joint Take 1 tablet (7.5 mg total) by mouth in the morning. 90 tablet 1 04/15/2024 Active Start: 02-26-2023 End: 09-02-2023 take 1 tablet by mouth in the morning meloxicam (MOBIC) 7.5 mg tablet Indications: Arthritis , Arthralgia, unspecified joint TAKE 1 TABLET (7.5 MG TOTAL) BY MOUTH IN THE MORNING 30 tablet 5 09/02/2023 Active Problems Active Problems Problem Classification Problem Date Documented Da te Episodic/Chronic Cancer; other and unspecified primary (1 source) H/O: neoplasm; Translations: [Personal history of benign carcinoid tumor] 05-18-2024 Episodic Mood disorders (2 sources) Depressive disorder; Translations: [Depression, unspecified depression type] 08-29-2023 Chronic Mood disorders (11 sources) Mood disorders; Translations: [Depression, unspecified] Onset: 01-23-2023 Resolved: 05-18-2024 01-23-2023 Osteoarthritis (1 source) Arthritis; Translations: [Unspecified osteoarthritis, unspecified site] 09-02-2023 Chronic Other and unspecified benign neoplasm (1 source) Carcinoid tumor of rectum; 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] 11-04-2023 Episodic Other endocrine disorders (1 source) Polycystic ovary syndrome; Translations: [Polycystic ovarian syndrome] 08-29-2023 Chronic Other endocrine disorders (1 source) Polycystic ovarian syndrome; Translations: [Polycystic ovarian syndrome] Onset: 11-14-2023 Chronic Other non-traumatic joint disorders (2 sources) Joint pain; Translations: [Pain in unspecified joint] 08-29-2023 Episodic Other nutritional; endocrine; and metabolic disorders (2 sources) Metabolic syndrome X; Translations: [Metabolic syndrome] 08-29-2023 Chronic Other nutritional; endocrine; and metabolic disorders (1 source) Metabolic syndrome; Translations: [Metabolic syndrome] Onset: 11-14-2023 Chronic Other screening for suspected conditions (not mental disorders or infectious disease) (17 sources) Patient encounter status; Translations: [Encounter for screening for malignant neoplasm of colon] Onset: 03-01-2023 08-29-2023 Episodic Unclassified (1 source) Colon Cancer Screening Onset: 09-24-2023 Past or Other Problems Problem Classification Problem Date Documented Da te Episodic/Chronic Other and unspecified benign neoplasm (1 source) Polyp of colon; Translations: [Polyp of colon] Onset: 11-14-2023 Episodic Other non-traumatic joint disorders (1 source) Pain in unspecified joint; Translations: [Pain in unspecified joint] Onset: 08-29-2023 Episodic Residual codes; unclassified (1 source) Pain, unspecified; Translations: [Pain, unspecified] Onset: 11-06-2023 Episodic Results Test Name Value Interpretation Reference Range Facility Colonoscopyon 10-23-2023 [facility] Surgical PathologyOrdered By : Nadia Loving on 10-23-2023 [facility] US Venous Reflux/Insuff, David Loweron 02-07-2022 [...] by Silver Carmona on 02/07/2022 1034 Normal [facility] Specialist SCREENING MAMMOGRAM W/DEDRICK, BILATERAL*on 12-15-2021 SCREENING MAMMOGRAM [...] VERY IMPORTANT TO YOUR HEALTH. THE CURRENT [employer] GUIDELINES RECOMMENDS ANNUAL MAMMOGRAPHY BEGINNING AT AGE 40. THIS FACILITY USES A REMINDER SYSTEM TO ENSURE ALL PATIENTS RECEIVE REMINDER NOTIFICATIONS AT THE APPROPRIATE TIME BASED ON THE RECOMMENDATIONS OF THIS EXAM. Report reported and signed by Silver Carmona on 12/15/2021 1022 Normal [facility] Comprehensive Metabolic Pane hattie 12-13-2021 Albumin [Mass/Vol] 4.6 g/dL Normal 3.6-5.1 [facility] Comment on above: Performed By: #### T SH reflex FT4, LIPD, CMP #### [facility] [address] [place], [place] [id number] Albumin/Globulin [Mass ratio] 2.3 {ratio} Normal 1.0-2.5 [facility] Comment on above: Performed By: #### T SH reflex FT4, LIPD, CMP #### [facility] [address] [place], [place] [id number] ALP [Catalytic activity/Vol] 65 U/L Normal 35-119 [facility] Comment on above: Performed By: #### T SH reflex FT4, LIPD, CMP #### [facility] [address] [place], [place] [id number] ALT [Catalytic activity/Vol] 13 U/L Normal 6-33 [facility] Comment on above: Result Comment: 07/05 Female reference range changed. Performed By: #### T SH reflex FT4, LIPD, CMP #### [facility] [address], [place] [id number] Anion gap [Moles/Vol] 18 mmol/L Normal 12-20 [facility] Comment on above: Result Comment: Effe ctive 08/10/2019 reference range changed. Performed By: #### T SH reflex FT4, LIPD, CMP #### [facility] [address] [place], [place] [id number] AST [Catalytic activity/Vol] 18 U/L Normal 9-34 [facility] Comment on above: Performed By: #### T SH reflex FT4, LIPD, CMP #### [facility] [address], [place] [id number] Bilirubin [Mass/Vol] 0.44 mg/dL Normal 0.30-1.20 [facility] Comment on above: Performed By: #### T SH reflex FT4, LIPD, CMP #### [facility] [address] [place], [place] [id number] BUN/CREA 14 Ratio Normal 6-22 [facility] Comment on above: Performed By: #### T SH reflex FT4, LIPD, CMP #### [facility] [address], [place] [id number] Calcium [Mass/Vol] 9.9 mg/dL Normal 8.6-10.2 [facility] Comment on above: Performed By: #### T SH reflex FT4, LIPD, CMP #### [facility] [address], [place] [id number] Chloride [Moles/Vol] 102 mmol/L Normal 98-107 [facility] Comment on above: Performed By: #### T SH reflex FT4, LIPD, CMP #### [facility] [address], [place] [id number] CO2 [Moles/Vol] 26 mmol/L Normal 20-31 [facility] Comment on above: Performed By: #### T SH reflex FT4, LIPD, CMP #### [facility] [address], [place] [id number] Creatinine [Mass/Vol] 0.9 mg/dL Normal 0.6-1.4 [facility] Comment on above: Performed By: #### T SH reflex FT4, LIPD, CMP #### [facility] [address] [place], [place] [id number] eGFRAA 83 mL/min/1.73m2 Normal >60 [facility] Comment on above: Performed By: #### T SH reflex FT4, LIPD, CMP #### [facility] [address], [place] [id number] eGFRNAA 69 mL/min/1.73m2 Normal >60 [facility] Comment on above: Performed By: #### T SH reflex FT4, LIPD, CMP #### [facility] [address], [place] [id number] Globulin (S) [Mass/Vol] 2.0 g/dL Normal 1.9-3.7 [facility] [employer] Comment on above: Performed By: #### T SH reflex FT4, LIPD, CMP #### [facility] [address], [place] [id number] Glucose [Mass/Vol] 117 mg/dL High 65-99 [employer] [place] [employer] Comment on above: Result Comment: For FASTING Glucose --- ADA reference ranges: Normal 65-99 mg/dl Prediabetes 100-125 Diabetes >/= 126 Performed By: #### T SH reflex FT4, LIPD, CMP #### [facility] [address] [place], [place] [id number] Potassium [Moles/Vol] 4.6 mmol/L Normal 3.5-5.5 [facility] Comment on above: Result Comment: Spec imen is hemolyzed. Results may be affected. Performed By: #### T SH reflex FT4, LIPD, CMP #### [facility] [address], [place] [id number] Protein [Mass/Vol] 6.6 g/dL Normal 6.1-8.1 [employer] [place] [employer] Comment on above: Performed By: #### T SH reflex FT4, LIPD, CMP #### [facility] [address] [place], [place] [id number] Sodium [Moles/Vol] 142 mmol/L Normal 135-146 [employer] [place] [employer] Comment on above: Performed By: #### T SH reflex FT4, LIPD, CMP #### [facility] [address], [place] [id number] Urea nitrogen [Mass/Vol] 13 mg/dL Normal 7-25 [facility] [employer] Management Consult[employer] Comment on above: Performed By: #### T SH reflex FT4, LIPD, CMP #### [facility] [address], [place] [id number] Lipid Panelon 12-13-2021 Cholesterol [Mass/Vol] 188 mg/dL Normal 125-200 [facility] [employer] Management Consult[employer] Comment on above: Result Comment: Low risk < 200mg/dL Borderline risk 201-239 mg/dl High risk > or equal to 240 Performed By: #### T SH reflex FT4, LIPD, CMP #### [facility] [address], [place] [id number] Cholesterol in HDL [Mass/Vol] 68 mg/dL Normal >40 [facility] Specialist Comment on above: Result Comment: High Cardiovascular Risk HDL <40 mg/dL Low Cardiovascular Risk HDL > or equal to 60 mg/dl Performed By: #### T SH reflex FT4, LIPD, CMP #### [facility] [address] [place], [place] [id number] Cholesterol in LDL [Mass/Vol] 103 mg/dL Normal [facility] Comment on above: Result Comment: LDL ATP III CLASSIFICATION LDL less than 100 mg/dl Optimal LDL 100-129 mg/dl Near or above optimal LDL 130-159 Borderline high LDL 160-189 High LDL greater than 189 mg/dl Very High Performed By: #### T SH reflex FT4, LIPD, CMP #### [facility] [address], [place] [id number] Cholesterol in VLDL [Mass/Vol] 17 mg/dL Normal [facility] Comment on above: Performed By: #### T SH reflex FT4, LIPD, CMP #### [facility] [address] [place], [place] [id number] Cholesterol.total/Cho lesterol in HDL [Mass ratio] 3 {ratio} Normal [facility] Comment on above: Performed By: #### T SH reflex FT4, LIPD, CMP #### [facility] [address] [place], [place] [id number] Triglyceride [Mass/Vol] 83 mg/dL Normal 30-150 [facility] Specialist Comment on above: Result Comment: TRIG ATPIII CLASSIFICATIONS TRIG less than 150 mg/dl Normal TRIG 150-199 mg/dl Borderline High TRIG 200-500 mg/dl High TRIG greather than 500 mg/dl Very High Performed By: #### T SH reflex FT4, LIPD, CMP #### [facility] [address] [place], [place] [id number] TSH w/ Reflex to Free T4on 0 - TSH 3.260 uIU/mL Normal 0.400-4.500 [place] [facility] Comment on above: Performed By: #### T SH reflex FT4, LIPD, CMP #### [facility] [address] [place], [place] [id number] XR Spine Cervical Complete*o n 12-13-2021 XR [...] by Silver Carmona on 12/13/2021 1031 Normal [facility] Change Management Consultant Vital Signs Date Time Vital Sign Value Performing Clinician Facility 05-18-2024 16:17-0400 Diastolic blood pressure 84 mm[Hg] Cody Shrestha PA-C Work Phone: [facility] 05-18-2024 16:17-0400 Systolic blood pressure 124 mm[Hg] Cody Shrestha PA-C Work Phone: [facility] 05-18-2024 15:41-0400 Body height 170.2 cm Cody Shrestha PA-C Work Phone: [facility] 05-18-2024 15:41-0400 Body mass index (BMI) [Ratio] 56.38 kg/m2 Cody Shrestha PA-C Work Phone: [facility] 05-18-2024 15:41-0400 Body temperature 98.01 [degF] Cody Shrestha PA-C Work Phone: [facility] 05-18-2024 15:41-0400 Body weight 163.29 kg Cody Shrestha PA-C Work Phone: [facility] 05-18-2024 15:41-0400 Heart rate 74 /min Cody Shrestha PA-C Work Phone: [facility] 05-18-2024 15:41-0400 Respiratory rate 18 /min Cody Shrestha PA-C Work Phone: [facility] 05-18-2024 15:41-0400 SaO2% (BldA) [Mass fraction] 96 % Cody Shrestha PA-C Work Phone: [facility] 09-24-2023 15:43-0500 Body height 170.2 cm Aureliano Garvin FORMING MACHINE UPKEEP MECHANIC HELPER-ACTUARIAL ANALYST Work Phone: [facility] 09-24-2023 15:43-0500 Body mass index (BMI) [Ratio] 54.88 kg/m2 Aureliano Garvin FORMING MACHINE UPKEEP MECHANIC HELPER-ACTUARIAL ANALYST Work Phone: [facility] 09-24-2023 15:43-0500 Body weight 158.94 kg Aureliano Garvin FORMING MACHINE UPKEEP MECHANIC HELPER-ACTUARIAL ANALYST Work Phone: [facility] 09-24-2023 15:43-0500 Diastolic blood pressure 84 mm[Hg] Aureliano Garvin FORMING MACHINE UPKEEP MECHANIC HELPER-ACTUARIAL ANALYST Work Phone: [facility] 09-24-2023 15:43-0500 Systolic blood pressure 163 mm[Hg] Aureliano Garvin FORMING MACHINE UPKEEP MECHANIC HELPER-ACTUARIAL ANALYST Work Phone: [facility] 08-29-2023 15:45-0500 Body height 170.2 cm Cody Shrestha PA-C Work Phone: [facility] 08-29-2023 15:45-0500 Body mass index (BMI) [Ratio] 57.17 kg/m2 Cody Shrestha PA-C Work Phone: [facility] 08-29-2023 15:45-0500 Body temperature 97.7 [degF] Cody Shrestha PA-C Work Phone: [facility] 08-29-2023 15:45-0500 Body weight 165.56 kg Cody Shrestha PA-C Work Phone: [facility] 08-29-2023 15:45-0500 Diastolic blood pressure 86 mm[Hg] Cody Shrestha PA-C Work Phone: [facility] 08-29-2023 15:45-0500 Heart rate 62 /min Cody Shrestha PA-C Work Phone: [facility] 08-29-2023 15:45-0500 SaO2% (BldA) [Mass fraction] 97 % Cody Shrestha PA-C Work Phone: [facility] 08-29-2023 15:45-0500 Systolic blood pressure 124 mm[Hg] Cody Shrestha PA-C Work Phone: [facility] Encounters Encounter Date Encounter Type Care Provider Facility Start: 05-18-2024 End: 05-18-2024 Office outpatient visit 25 minutes Cody Shrestha PA-C Work Phone: [facility]/Abril Rodriguez MD Comment on above: Metabolic syndrome ( Primary Dx); Depression, unspecified depression type; H/O benign carcinoid tumor; Screening mammogram for breast cancer Start: 05-18-2024 End: 05-18-[address] [facility] Start: 11-14-2023 End: 11-14-[address] [facility] Start: 11-14-2023 Encounter for genera l adult medical examination without abnormal findings [facility] Start: 11-07-2023 Telephone encounter Lizzy Lafleur CMA [facility] Start: 11-06-2023 ambulatory ABRIL RODRIGUEZ [facility] Start: 11-04-2023 Telephone encounter Lizzy Lafleur CMA [facility] Comment on above: Carcinoid tumor of r ectum, unspecified whether malignant (Primary Dx) Start: 10-30-2023 Orders Only Not In System Ref Prov [facility] Start: 10-23-2023 Office outpatient vi sit 15 minutes Aureliano Garvin FORMING MACHINE UPKEEP MECHANIC HELPER-ACTUARIAL ANALYST [facility] Work Phone: Start: 10-23-2023 Orders Only Nadia Loving RMA [facility] Comment on above: Encounter for screen ing colonoscopy Start: 09-24-2023 End: 09-24-2023 Patient encounter procedure Aureliano Garvin FORMING MACHINE UPKEEP MECHANIC HELPER-ACTUARIAL ANALYST Work Phone: [facility] Comment on above: Encounter for screen ing colonoscopy (Primary Dx); Special screening for malignant neoplasm of colon Start: 09-24-2023 End: 09-24-2023 ambulatory [facility]ha [facility] Start: 09-02-2023 Refill Cody Shrestha PA-C Work Phone: [facility]/Abril Rodriguez MD Comment on above: Arthritis; Arthralgia, unspecified joint Start: 08-29-2023 End: 08-29-2023 Office outpatient visit 25 minutes Cody Shrestha PA-C Work Phone: [facility]/Abril Rodriguez MD Comment on above: Metabolic syndrome ( Primary Dx); Depression, unspecified depression type; PCOS (polycystic ovarian syndrome); Arthralgia, unspecified joint; Annual physical exam; Special screening for malignant neoplasm of colon Start: 08-29-2023 End: 08-29-2023 Patient encounter procedure Cody Shrestha PA-C Work Phone: [facility] Start: 08-29-2023 End: 08-29-2023 ambulatory CODY SHRESTHA [facility] Procedures Date Procedure Procedure Detail Performing Clinician Start: 05-18-2024 Adult depression scr eening assessment Cody Shrestha PA-C Work Phone: Start: 11-14-2023 Follow-up visit Follow-up CODY SHRESTHA Start: 10-23-2023 Level i surg patholo gy gross examination only Not In System Ref Prov Start: 10-23-2023 Colonoscopy Lizzy nielsen CMA Start: 01-23-2023 Adult depression scr eening assessment Cody Shrestha PA-C Work Phone: Plan of Treatment Date Care Activity Detail Author Start: 10-22-2028 Screening for malign ant neoplasm of colon Colonoscopy [facility] Start: 05-18-2025 Adult BMI Screening Adult BMI Screen ing [facility] Start: 05-18-2025 Depression Screening Depression Scre ening [facility] Start: 05-18-2025 Tobacco Screening Tobacco Screening [facility] Start: 11-26-2024 End: 11-26-2024 Patient encounter procedure 11/26/2024 3:30 PM EDT Office Visit [facility]/Abril Rodriguez MD [address] [place] [id number] Cody Shrestha PA-C [address] [place] [address] [facility]/Abril Rodriguez MD Start: 09-24-2024 Adult BMI Screening Adult BMI Screen ing [facility] Start: 09-24-2024 Tobacco Screening Tobacco Screening [facility] Start: 08-29-2024 Adult BMI Screening Adult BMI Screen ing [facility] Start: 08-29-2024 Tobacco Screening Tobacco Screening [facility] Start: 05-18-2024 End: 05-18-2025 DBT Breast - bilateral screening Mammography screening bilateral with CAD Imaging Routine Screening mammogram for breast cancer Expected: 05/18/2024, Expires: 05/18/2025 [facility] Work Phone: Comment on above: Expected: 05/18/2024 , Expires: 05/18/2025 Start: 04-05-2024 COVID-19 Vaccine ( season) COVID-19 Vaccine () [facility] Start: 04-05-2024 Influenza vaccination Influenza Vacc ine [facility] Start: 01-24-2024 Depression Screening Depression Scre ening [facility] Start: 11-14-2023 End: 11-14-2023 Patient encounter procedure 11/14/2023 3:00 PM EDT Office Visit [facility]/Abril Rodriguez MD [address] [place] [address] Cody Shrestha, PAMansoorC [address] [facility] [address] [place] [address] [facility]/Abril Rodriguez MD Start: 11-13-2023 End: 11-13-2023 Patient encounter procedure 11/13/2023 1:00 PM EDT [facility] [address] [place] [phone] Og Smith DO [address] [place], [place] [phone] [facility] Surgery Start: 11-04-2023 End: 11-03-2024 CT Abdomen and Pelvis W contrast IV CT abdomen and pelvis with contrast Imaging Routine Carcinoid tumor of rectum, unspecified whether malignant Expected: 11/04/2023, Expires: 11/03/2024 [facility] Work Phone: Comment on above: Expected: 11/04/2023 , Expires: 11/03/2024 Start: 09-24-2023 End: 09-24-2023 Patient encounter procedure 09/24/2023 3:30 PM EST Office Visit [facility] General Surgery [address] [place] [phone] Aureliano Garvin, FORMING MACHINE UPKEEP MECHANIC HELPER-ACTUARIAL ANALYST [address] [place], [place] [phone] [facility] Surgery Start: 04-05-2023 COVID-19 Vaccine ( season) COVID-19 Vaccine ( season) [facility] Start: 04-05-2023 Influenza vaccination Influenza Vacc ine [facility] Start: 2020 Administration of varicella zoster vaccine Zoster (Shingles) Vaccine (1 of 2) [facility] Start: 1991 Screening for malign ant neoplasm of cervix Pap Smear [facility] Start: 1989 DTaP,Tdap and Td Vaccines (1 - Tdap) DTaP,Tdap and Td Vaccines (1 - Tdap) [facility] Start: 1988 Adult BMI Follow Up Plan [facility] End: 08-29-2024 CBC W Auto Differential panel - Blood CBC auto differential Lab Routine Metabolic syndrome Annual physical exam 1 Occurrences starting 08/29/2023 until 08/29/2024 [employer] Work Phone: Comment on above: 1 Occurrences starti ng 08/29/2023 until 08/29/2024 End: 09-24-2024 Colonoscopy Colonoscopy GI Routine Encounter for screening colonoscopy 1 Occurrences starting 09/24/2023 until 09/24/2024 [employer] Work Phone: Comment on above: 1 Occurrences starti ng 09/24/2023 until 09/24/2024 End: 08-29-2024 Comprehensive metabolic 2000 panel - Serum or Plasma Comprehensive metabolic panel Lab Routine Metabolic syndrome Depression, unspecified depression type Annual physical exam 1 Occurrences starting 08/29/2023 until 08/29/2024 [facility] Comment on above: 1 Occurrences starti ng 08/29/2023 until 08/29/2024 End: 08-29-2024 Hemoglobin A1c/Hemoglobin.total in Blood Hemoglobin A1c Lab Routine Metabolic syndrome Annual physical exam 1 Occurrences starting 08/29/2023 until 08/29/2024 [facility] Comment on above: 1 Occurrences starti ng 08/29/2023 until 08/29/2024 End: 08-29-2024 Lipid 1996 panel - Serum or Plasma Lipid profile Lab Routine Metabolic syndrome Annual physical exam 1 Occurrences starting 08/29/2023 until 08/29/2024 [facility] Comment on above: 1 Occurrences starti ng 08/29/2023 until 08/29/2024 End: 08-29-2024 Thyrotropin [Units/volume] in Serum or Plasma TSH Lab Routine Metabolic syndrome Annual physical exam 1 Occurrences starting 08/29/2023 until 08/29/2024 [facility] Comment on above: 1 Occurrences starti ng 08/29/2023 until 08/29/2024 End: 08-29-2024 Thyroxine (T4) free [Mass/volume] in Serum or Plasma T4, free Lab Routine Metabolic syndrome Annual physical exam 1 Occurrences starting 08/29/2023 until 08/29/2024 [facility] Comment on above: 1 Occurrences starti ng 08/29/2023 until 08/29/2024 Immunizations Immunization Date Immunization Notes Care Provider Maria Fernanda sandoval 05-23-2022 influenza virus vaccine, unspecified formulation Cody Shrestha PA-C Work Phone: [facility] Payers Date Payer Category Payer Unknown [employer] (PPO) [id number] 2023-Present [phone] [address] [place] [address] [id number] 2023 Unknown [id number] 1970 Unknown [id number] 1970 Unknown [id number] 1970 Unknown [id number] 1970 Unknown [id number] 1970 Unknown [id number] Social History Date Type Detail Facility Start: 01-23-2023 [facility] Start: 01-23-2023 Tobacco use and exposure Smokeless tobacco non-user [facility] Start: 08-29-2023 End: 05-18-2024 Alcohol intake Current drinker of alcohol (finding) [facility] Start: 08-29-2023 End: 05-18-2024 History of Social function [facility] Start: 08-29-2023 End: 05-18-2024 Tobacco use panel [facility] How hard is it for y ou to pay for the very basics like food, housing, medical care, and heating Not very hard [facility] Adolescent depressio n screening assessment 0 [facility] Start: 01-23-2023 Alcohol Comment social [facility] Start: 1970 Sex Assigned At Not on file [facility] Clinical Notes 08-29-2023 to 05-18-2024 Cody Shrestha PA-C - 05/18/2024 3:30 PM EDTPatient InstructionsAttachmentsTelephone Encounter - Lizzy Lafleur, CARRIER ASSOCIATE - 11/07/2023 10:08 AM EDTAureliano Garvin, FORMING MACHINE UPKEEP MECHANIC HELPER-ACTUARIAL ANALYST - 09/24/2023 3:30 PM EST Note Date & Type Note Facility 05-18-2024 History of Presen t illness Narrative Subjective Patient ID: Ariana Aguilar is a 53 y.o. female. Chief Complaint Chief Complaint Patient presents with Follow-up HPI HPI 5th visit with Ariana, 6 month recheck to metabolic syndrome, arthritis, mild depression. Batttles obesity. 11/07/23 A1C of 5.8. 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 Increased stress/anxiety/gloomy moods. Taking lexapro 20mg qd. Asks for xanax. Has not been exercising, previously bike 30-35 minutes/day. Wt down 40 lbs with weight watchers but has regained 18 lbs. Not doing weight watchers. Not interested in bariatric or glp1's. Taking Mobic 7.5mg qd. Takes 1 per day. Occ with cold/rain would like to take 2/day. Labs: 11/2023 [facility], reviewed. Excellent cbc,cmp, lipids, tsh, A1c. Mammogram completed 03/21/2023, Due. NO SBE concerns Pap: s/p Hysterectomy. NO vaginal bleeding. Doing well on lexapro 20mg qd-no SE's. Colonoscopy completed, found 2 tiny small polyps by Dr. Smith. Pathology Carcinoid Tumor, margins clear. Had CT abd/pelvis as follow-up which was normal. Advised a repeat Colonoscopy in 3-5 years. ROS: 3 month of increased standing leading to areas of swelling medial david lower legs. On days of compression hose no problems. Has not developed wounds, blisters, ect. No had or foot edema/tightness. No cp, sob, palpitation, fever. 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 Depression GERD (gastroesophageal reflux disease) Obesity PCOS (polycystic ovarian syndrome) Varicella Visual impairment Past Surgical History Past Surgical History: Procedure [...] Son Learning disabilities Son Learning disabilities Son Social History Social History Socioeconomic History Marital status: Spouse name: Not on file Number of children: Not on file Years of education: Not on file Highest education level: Not on file Occupational History Not on file Tobacco Use Smoking status: Never Smokeless tobacco: Never Vaping Use Vaping status: Never Used Substance and Sexual Activity Alcohol use: Yes Comment: social Drug use: Never Sexual activity: Defer Other Topics Concern Not on file Social History Narrative Not on file Social Determinants of Health Financial Resource Strain: Low Risk (01/20/2023) Overall Financial Resource Strain (CARDIA) Difficulty of Paying Living Expenses: Not very hard Food Insecurity: No Food Insecurity (05/18/2024) Hunger Screening Food Insecurity - Worry: Never [...] Dispense Refill escitalopram (LEXAPRO) 20 mg tablet Take 1 tablet (20 mg total) by mouth in the morning. 90 tablet 1 loratadine (CLARITIN) 10 mg tablet Take 1 tablet (10 mg total) by mouth in the morning. 90 tablet 3 meloxicam (MOBIC) 7.5 mg tablet Take 1 tablet (7.5 mg total) by mouth in the morning. 90 tablet 1 No current facility-administered medications for this visit. Review of Systems Review of Systems Constitutional: Negative for appetite change, fatigue and fever. HENT: Negative for ear pain and sore throat. Respiratory: Negative for cough and shortness of breath. Cardiovascular: Negative for chest pain and leg swelling. Gastrointestinal: Negative for abdominal pain, blood in stool, constipation, diarrhea, nausea and vomiting. Genitourinary: Negative for dysuria and flank pain. Musculoskeletal: Negative for arthralgias, back pain, gait problem, myalgias and neck pain. Skin: Negative for rash and wound. Neurological: Negative for dizziness, weakness, numbness and headaches. Psychiatric/Behavioral: Negative for confusion and sleep disturbance. The patient is not nervous/anxious. Objective Vitals BP 124/84 Pulse 74 Temp 36.7 C (98 F) Resp 18 Ht 170.2 cm (5' 7 ) Wt (!) 163.3 kg (360 lb) SpO2 96% BMI 56.38 kg/m Wt Readings from Last 3 Encounters: 05/18/24 (!) 163.3 kg (360 lb) 11/14/23 (!) 155.1 kg (342 lb) 09/24/23 (!) 158.9 kg (350 lb 6.4 oz) Physical Exam Physical Exam Constitutional: General: She is not in acute distress. Appearance: She is well-developed. She is obese. She is not ill-appearing. HENT: Head: Normocephalic and atraumatic. Right Ear: Tympanic membrane and ear canal normal. Left Ear: Tympanic membrane and ear canal normal. Nose: Nose normal. No rhinorrhea. Right Sinus: No maxillary sinus tenderness or [...] normal. Behavior: Behavior normal. Behavior is cooperative. Thought Content: Thought content normal. Judgment: Judgment normal. Recent Pertinent Labs and Radiology Assessment/Plan 1. Metabolic syndrome 2. Depression, unspecified depression type 3. H/O benign carcinoid tumor 4. Screening mammogram for breast cancer - Mammography screening bilateral with CAD; Future There are no discontinued medications. Patient Instructions Labs UTD 11/2023. Mammogram due (03/2023). 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 Colonoscopy advised in 5 years, consider 3 years. Intentionally exercise, 30 minutes 4 times/wk. Has gained 18 lbs in 6 month. Motivation to lose, make your reasons to exercise. Declines glp1, bariatric. Count calories as 1500cal/day. Begin to wear compression hose on days of prolonged standing/walking. watermaster cardiac risk of weight are a concern for chf, mi. Cody Shrestha PA-C 05/18/24 1634 documented in this encounter [facility] 05-18-2024 Instructions Cody Shrestha PA-C - 05/18/2024 3:30 PM EDT Labs UTD 11/2023. Mammogram due (03/2023). 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 Colonoscopy advised in 5 years, consider 3 years. Intentionally exercise, 30 minutes 4 times/wk. Has gained 18 lbs in 6 month. Motivation to lose, make your reasons to exercise. Declines glp1, bariatric. Count calories as 1500cal/day. Begin to wear compression hose on days of prolonged standing/walking. watermaster cardiac risk of weight are a concern for chf, mi. The following attachments cannot be sent through Care Everywhere.Weight Loss Tips (Croatian)documented in this encounter [facility] 11-07-2023 Miscellaneous Notes ----- Message from Og Smith DO sent at 11/07/2023 10:01 AM EDT ----- Regarding: Results of CT scan Please let patient know that CT scan was normal although they saw some irregularity in the transverse colon but she already had a colonoscopy which was negative. I am not worried. She should have a repeat scope in 5 years or if she has any problems let me know. Thanks, Dr. Loza she does not need to return to the office for an appointment unless she has questions. She worked with Dr. Kwabena blanco and knows all about surgery. ----- Message ----- From: SLOAN Keane Sent: 11/07/2023 8:50 AM EDT To: Og Smith DO Spoke with patient regarding CT scan results. Patient verbally understood with no further questions. Patient is okay with cancelling 11/13/23 appointment. Will cancel appointment and inform Dr. Smith. documented in this encounter [facility] 11-07-2023 Telephone encounter Note ----- Message from Og Smith DO sent at 11/07/2023 10:01 AM EDT ----- Regarding: Results of CT scan Please let patient know that CT scan was normal although they saw some irregularity in the transverse colon but she already had a colonoscopy which was negative. I am not worried. She should have a repeat scope in 5 years or if she has any problems let me know. ThanksDr. Loza she does not need to return to the office for an appointment unless she has questions. She worked with Dr. Kwabena blanco and knows all about surgery. ----- Message ----- From: SLOAN Keane Sent: 11/07/2023 8:50 AM EDT To: Og Smith DO [facility] 11-07-2023 Telephone encounter Note Spoke with patient regarding CT scan results. Patient verbally understood with no further questions. Patient is okay with cancelling 11/13/23 appointment. Will cancel appointment and inform Dr. Smith. [facility] 11-04-2023 Miscellaneous Notes I spoke to patient [...] that appointment later. [facility] 11-04-2023 Telephone encounter Note I spoke [...] negative she may cancel that appointment later. [facility] 11-04-2023 Miscellaneous Notes ----- Message [...] discuss pathology results. documented in this encounter [facility] 11-04-2023 Telephone encounter Note ----- Message [...] 8:52 AM EDT To: Og Smith DO [facility] 11-04-2023 Telephone encounter Note Patient is scheduled on 11/13/23. I have informed Dr. Smith and sent him a message to let him know he can call patient to discuss pathology results. [facility] 09-24-2023 History of Presen t illness [...] patient/family/caregiver Referring and communicating with other health critical care registered nurse Encounter for screening colonoscopy [Z12.11] ARON MEZA [facility] General Surgery [place] This note was created with the assistance of a speech recognition program. While intending to generate a timely document that accurately reflects the content of the visit, no guarantee can be provided that every grammatical or spelling mistake has been or will be identified or corrected. Thank you for your understanding. ARON Meza 09/24/23 1555 documented in this encounter [facility] 08-29-2023 History of Presen t illness Narrative [...] PA-C 08/29/23 1626 documented in this encounter [facility] 08-29-2023 Instructions Cody Shrestha PA-C - 08/29/2023 3:30 PM EST Chronic conditions well controlled Great job on weight loss Fasting labs Referral to Dr. Clemente, general surgeon for screening c-scope Recheck in 3 months documented in this encounter [facility] Evaluation note Diagnosis Metabolic syndrome- Primary Dysmetabolic Syndrome X Depression, unspecified depression type PCOS (polycystic ovarian syndrome) Polycystic ovaries Arthralgia, unspecified joint Annual physical exam Routine general medical examination at a health care facility Special screening for malignant neoplasm of colon Special screening for malignant neoplasms, colon [facility] Diagnosis Arthritis Unspecified arthropathy, site unspecified Arthralgia, unspecified joint [facility] Diagnosis Encounter for screening colonoscopy- Primary Special screening for malignant neoplasm of colon Special screening for malignant neoplasms, colon [facility] Encounter for screening colonoscopy [facility] Diagnosis Carcinoid tumor of rectum, unspecified whether malignant- Primary [facility] Diagnosis Metabolic syndrome- Primary Dysmetabolic Syndrome X Depression, unspecified depression type H/O benign carcinoid tumor Screening mammogram for breast cancer documented [facility] filedocumented in this encounter [facility] filedocumented in [facility] on filedocumented in this encounter [facility] on filedocumented in this encounter [facility] filedocumented in this encounter [facility] (narrative)* Consultation (Routine) - Pending Review Specialty Diagnoses / Procedures Referred By Lakeisha del castillo Referred To Contact General Surgery Diagnoses Special screening for malignant neoplasm of colon Cody Shrestha PA-C [address] [place] [address] Og Clemente MD [address] [place] [address] Referral ID Status Reason Start Date Expiration Date Visits Requested Visits Authorized [id number] Pending Review Specialty Services Required 08/29/2023 08/28/2024 1 1 [facility] Summary Purpose Family History No Family History Records FoundNo Family History Records Found Advance Directives No Advanced Directives Records FoundNo Advanced Directives Records Found Reason for Referral Specialty Diagnoses / Procedures Referred By Contac t Referred To Contact Diagnoses Carcinoid tumor of rectum, unspecified whether malignant Procedures CT abdomen and pelvis with contrast Og Smith, [address] [place] [address] Referral ID Status Reason Start Date Expiration Date V isits Requested Visits Authorized [id number] Pending Review 11/04/2023 11/03/2024 1 1 Additional Source Comments INFORMATION SOURCE (unrecogn ized section and content) DATE CREATED AUTHOR 02/07/2022 [facility] dical Specialist DATE CREATED AUTHOR AUTHOR'S ORGANIZ ATION 05/20/2024 [facility] Reason for Visit (unrecogniz ed section and content) Reason Comments Follow-up 6 month f/u, med ronaldo ck Reason Comments Med Refill Reason Comments Colon Cancer Screening First colon Specialty Diagnoses / Procedures Referred By Contac t Referred To Contact General Surgery Diagnoses Special screening for malignant neoplasm of colon Cody Shrestha PA-C [address] [address] Og Smith DO [address] [place] [address] Referral ID Status Reason Start Date Expiration Date V isits Requested Visits Authorized [id number] Closed Specialty Services Required 08/29/2023 08/28/2024 1 1 Reason Comments Follow-up Care Teams (unrecognized sec tion and content) Property Claims Manager Relationship Specialty Start Date End Date Abril Rodriguez MD [address] [address] PCP - General Internal Medicine 01/23/23 Property Claims Manager Relationship Specialty Start Date End Date Abril Rodriguez MD [address] [address] PCP - General Internal Medicine 01/23/23 Property Claims Manager Relationship Specialty Start Date End Date Abril Rodriguez MD [address] [place] [address] PCP - General Internal Medicine 01/23/23 Property Claims Manager Relationship Specialty Start Date End Date Abril Rordiguez MD [address] [address] PCP - General Internal Medicine 01/23/23 Property Claims Manager Relationship Specialty Start Date End Date Abril Rodriguez MD [address] [place] [address] PCP - General Internal Medicine 01/23/23 Property Claims Manager Relationship Specialty Start Date End Date Abril Rodriguez MD [address] [address] PCP - General Internal Medicine 01/23/23 Property Claims Manager Relationship Specialty Start Date End Date Abril Rodriguez MD [address] [address] PCP - General Internal Medicine 01/23/23 Property Claims Manager Relationship Specialty Start Date End Date Abril Rodriguez MD [address] [address] PCP - General Internal Medicine 01/23/23 Property Claims Manager Relationship Specialty Start Date End Date Abril Rodriguez MD [address] [address] PCP - General Internal Medicine 01/23/23 FOR [...] BE BASED ON THE PRIMARY CLINICAL RECORDS. [facility]. provides no warranty or guarantee of the accuracy or completeness of information in this document.
--- NOTE | 2024-05-21 15:35 | MM_ITS ---
Patient Name: BROWN ARCINIEGA MR#: [id number] : 1970 Exam Date: 05/21/2024 Ordering Doctor: Non-Staff Physician RADIOLOGY REPORT PROCEDURE: MM TOMOSYNTHESIS SCREENING BI COMPARISON: MM TOMOSYNTHESIS SCREENING BI, 03/19/2023. MM TOMOSYNTHESIS DIAGNOSTIC BI, 12/15/2021. INDICATIONS: Screening Calculator Name NCI Breast Cancer Risk Assessment Tool 5 Year Breast Cancer Risk 0.90% Lifetime Breast Cancer Risk 7.30% Personal Breast Cancer No Personal Ovarian Cancer No Treatments None Family Cancers None LOCATION: [facility] BREAST COMPOSITION: The breasts are almost entirely fatty. FINDINGS: DIAGNOSTIC CATEGORY 1--NEGATIVE. NO CHANGE FROM COMPARISON ASSESSMENT. Scattered benign-appearing calcifications are present. RIGHT BREAST: No significant suspicious finding. LEFT BREAST: No significant suspicious finding. RECOMMENDATIONS: ROUTINE MAMMOGRAM AND CLINICAL EVALUATION IN 12 MONTHS. PLEASE NOTE: A NORMAL MAMMOGRAM DOES NOT EXCLUDE THE POSSIBILITY OF BREAST CANCER. A CLINICALLY SUSPICIOUS PALPABLE LUMP SHOULD BE BIOPSIED. Dictated by: Bereket Joyner MD on 05/22/2024 at 12:40 Approved by: Bereket Joyner MD on 05/22/2024 at 12:41
== END 2024-05-21 13:03 | disposition home or self-care (01) ==
LOC: RAD 13:06
DX: Z12.31 Encounter for screening mammogram for malignant neoplasm of breast (principal)
CPT/HCPCS: 77063; 77067